=== PATIENT | male | born 1955 | race Caucasian/White ===

== ENCOUNTER 2020-01-05 11:49 | Emergency (ER) | payer BC ==
--- NOTE | 2020-01-05 12:27 | ER Document Report ---
ED Medical Screen (RME) - General Chief Complaint: Shortness Of Breath Stated Complaint: SHORT OF BREATH,BODY SWELLING Time Seen by Provider: 01/05/20 12:14 Primary Care Provider: URIHA JONES MD [Primary Care Provider] - Follow up as needed Mode of Arrival: Ambulatory Information source: Patient - HPI Notes: 01/05/20 12:22 64-year-old male with a history of stage IV 9 small cell carcinoma presents emergency room with shortness of breath and generalized weakness for the last 4 days. Patient states that he was on infusions for his cancer treatment but but then was placed on an oral pill called "Geotrack" for 58 days but was taken off 6 days ago because he was having diarrhea. Since that time has had progressive weakness, shortness of breath and swelling in his bilateral legs and knee. Reports that his oncologist in [place] advised him to double his Lasix on a schedule due to his swelling. Patient does have an oncologist locally, Dr. Graham. Dr. Graham, oncologist on-call called and requested that he get a CT abdomen pelvis with IV and oral for concerns of non-small cell carcinoma spreading. Patient denies any chest pain, fevers, chills, abdominal pain, nausea vomiting or diarrhea. Patient denies being around any covid with positive patients I have greeted and performed a rapid initial assessment of this patient. A comp rehensive ED assessment and evaluation of the patient, analysis of test results and completion of the medical decision making process will be conducted by additional ED providers. PHYSICAL EXAMINATION: GENERAL: Chronically ill, malnourished, and in no acute distress. NECK: Normal range of motion CV: s1, s2 regular LUNGS: No respiratory distress - Related Data Allergies/Adverse Reactions: No Known Allergies Allergy (Unverified 01/05/20 12:12) Physical Exam - Vital signs Vitals: Temp Pulse Resp BP Pulse Ox 97.6 F 80 18 98/79 L 95 01/05/20 11:57 01/05/20 11:57 01/05/20 11:57 01/05/20 11:57 01/05/20 11:57 Course - Vital Signs Vital signs: Temp Pulse Resp BP Pulse Ox 97.6 F 80 18 98/79 L 95 01/05/20 11:57 01/05/20 11:57 01/05/20 11:57 01/05/20 11:57 01/05/20 11:57 Doctor's Discharge - Discharge Referrals: URIAH JONES MD [Primary Care Provider] - Follow up as needed
[2020-01-05 13:08] VITALS: BP 129/72
[2020-01-05 13:25] LABS: APPEARANCE,URINE CLEAR; BILIRUBIN,URINE NEGATIVE (NEGATIVE); COLOR,URINE YELLOW; GLUCOSE, URINE NEGATIVE (NEGATIVE); KETONES,URINE NEGATIVE (NEGATIVE); LEUKOCYTE ESTERASE,URINE NEGATIVE (NEGATIVE); NITRITE,URINE NEGATIVE (NEGATIVE); PROTEIN,URINE NEGATIVE (NEGATIVE); URINE SPECIFIC GRAVITY 1.012
[2020-01-05 13:26] LABS: HEMATOCRIT 42.9 % (37.9-51.0); HEMOGLOBIN 13.7 g/dL (13.5-17.0); MEAN CORPUSCULAR HEMOGLOBIN 26.2 pg (27.0-33.4); MEAN CORPUSCULAR VOLUME 82 fl (80-97); PLATELET COUNT 361 10^3/uL (150-450); RED BLOOD COUNT 5.24 10^6/uL (4.35-5.55); RED CELL DISTRIBUTION WIDTH 15.8 % (11.5-14.0); WHITE BLOOD COUNT 13.3 10^3/uL (4.0-10.5)
--- NOTE | 2020-01-05 13:33 | ER Document Report ---
ED General - General Chief Complaint: Shortness Of Breath Stated Complaint: SHORT OF BREATH,BODY SWELLING Time Seen by Provider: 01/05/20 12:14 Primary Care Provider: URIAH JONES MD [Primary Care Provider] - Follow up as needed Mode of Arrival: Ambulatory Notes: Patient is a 64-year-old white male with a history of stage IV non-small cell lung carcinoma who presents to the emergency department with a chief complaint of generalized weakness and increased shortness of breath. Patient states that he frequents pleural effusions. He states he was recently on an oral therapeutic medication GL lock. He states he stopped the medication secondary to severe diarrhea as a side effect. He states that since that time he is felt generally weak, fatigued and had increased shortness of breath. Called and spoke with Dr. Cachorro graham who recommended patient have a CT scan of the chest abdomen and pelvis with oral and IV contrast. Patient states he has had issues like this before with his breathing, had to have pleural effusion drained in the past. States this is not as severe as it was previously. They deny any known sick contacts. reports he had a COVID-19 test done 2 days ago and it was negative. No fevers. - Related Data Allergies/Adverse Reactions: No Known Allergies Allergy (Unverified 01/05/20 12:12) Past Medical History - General Information source: Patient - Social History Smoking Status: Former Smoker Chew tobacco use (# tins/day): No Drug Abuse: None Family History: Reviewed & Not Pertinent Review of Systems - Review of Systems Constitutional: Weakness. denies: Fever EENT: denies: Throat pain Cardiovascular: denies: Chest pain Respiratory: Short of breath Gastrointestinal: denies: Abdominal pain Musculoskeletal: denies: Muscle pain Hematologic/Lymphatic: denies: Easy bleeding Neurological/Psychological: Weakness Physical Exam - Vital signs Vitals: Temp Pulse Resp BP Pulse Ox 97.6 F 80 18 98/79 L 95 01/05/20 11:57 01/05/20 11:57 01/05/20 11:57 01/05/20 11:57 01/05/20 11:57 - General General appearance: Appears well, Alert In distress: None - Respiratory Respiratory status: No respiratory distress Chest status: Nontender Breath sounds: Rales - Left base Chest palpation: Normal - Cardiovascular Rhythm: Regular Heart sounds: Normal auscultation - Extremities General lower extremity: Edema - 1+ pitting - Neurological Neuro grossly intact: Yes Cognition: Normal Orientation: AAOx4 - Psychological Associated symptoms: Normal affect, Normal mood - Skin Skin Temperature: Warm Skin Moisture: Dry Skin Color: Normal Course - Re-evaluation Re-evalutation: 01/05/20 13:49 EK. Sinus rhythm at 79 bpm. First-degree AV block with a prolonged ME. Low voltage throughout. No STEMI. Interpreted by ED attending. 01/05/20 13:50 No prior EKG for comparison. 01/05/20 16:23 I called and spoke with the patient's traffic signal repairer in [facility], Dr. Wellington Henry at [phone]. We discussed the patient's history and he is very well- informed regarding this patient. He recommended given the patient's presentation and incidental findings of pericardial effusion on CT scan with the low voltage EKG that an echo be done. He reports the patient's had to have a tap of the pericardial effusion and pleural effusions in the past. He states especially given those findings and the small amount of ascites that an echo would be of great assistance. We discussed the patient's imaging and laboratory findings. I ordered a stat echo on the patient and called and spoke with the player piano technician. They will perform the echo stat. I called and spoke with Dr. Perez, traffic signal repairer on-call who will read the echo for us stat. He is aware of the patient's condition and history. In the interim Dr. Henry did recommend IV Lasix. This was in conjunction with recommendations from Dr. Cachorro graham. Both agreed IV Lasix would be appropriate in this setting. His traffic signal repairer also recommended the patient be changed to long-acting diuretic from Lasix given his ongoing fluid overload. Dr. Sage recommended torsemide 40 mg p.o. daily and discontinue Lasix after today. Pending echo at this time. 01/05/20 18:[address] Perez showing relatively normal echo with some mild regurgitations, no wall motion abnormalities and a normal EF of 55 to 60%. No significant pericardial effusion for drainage or evidence of tamponade. Per recommendations from the patient's traffic signal repairer Dr. Carmona we will change his Lasix to torsemide 40 mg daily. He was loaded with Lasix IV here, 80 mg. He is stable and appropriate for discharge and outpatient follow-up. Dr. Henry advised he will call the patient later today or tomorrow to follow-up with him. The patient will also call Dr. Cachorro graham himself within the next couple of days for ev aluation. Cachorro graham and Dr. Henry are aware of the patient's visit here condition, status and studies/results. Patient states that he actually feels very well. He states that he is feeling hungry, reports he has not had anything to eat or have much of an appetite in 3 to 4 days and is pleasantly surprised by being hungry. We will give him food here. Plan is for discharge with outpatient follow-up. Advised they return here or any ER immediately with any new, persistent or worsening symptoms. They verbalized understood and agreed. - Vital Signs Vital signs: Temp Pulse Resp BP Pulse Ox 97.6 F 80 18 129/72 H 94 01/05/20 11:57 01/05/20 11:57 01/05/20 15:00 01/05/20 13:11 01/05/20 14:01 - Laboratory Result Diagrams: 01/05/20 13:00 01/05/20 13:00 Laboratory results interpreted by me: 01/05/20 01/05/20 01/05/20 13:00 13:00 13:00 WBC 13.3 H MCH 26.2 L RDW 15.8 H Seg Neuts % (Manual) 79 H Lymphocytes % (Manual) 10 L Metamyelocytes % 2 H Abs Neuts (Manual) 10.8 H Sodium 132.5 L Chloride 91 L Carbon Dioxide 33 H BUN 51 H Creatinine 1.34 H Est GFR (MDRD) Non-Af 54 L Total Bilirubin 1.8 H NT-Pro-B Natriuret Pep 1650 H Urine Urobilinogen Urine Ascorbic Acid 01/05/20 13:00 WBC MCH RDW Seg Neuts % (Manual) Lymphocytes % (Manual) Metamyelocytes % Abs Neuts (Manual) Sodium Chloride Carbon Dioxide BUN Creatinine Est GFR (MDRD) Non-Af Total Bilirubin NT-Pro-B Natriuret Pep Urine Urobilinogen 2.0 H Urine Ascorbic Acid 20 H Discharge - Discharge Clinical Impression: Pericardial effusion, Pleural effusion, Lower extremity edema Fluid overload Qualifiers: Hypervolemia type: unspecified Qualified Code(s): E87.70 - Fluid overload, unspecified Ascites Qualifiers: Ascites type: other type Qualified Code(s): R18.8 - Other ascites Condition: Stable Disposition: HOME, SELF-CARE Instructions: Pleural Effusion ([facility]) Additional Instructions: Please follow-up with Dr. Graham within the next few days. Patient Dr. Henry advised he will call you to check in with you. Please discontinue your Lasix. We will start you on torsemide 40 mg daily. Please return here or any ER immediately with any new, persistent or worsening symptoms. Prescriptions: Torsemide [Demadex 20 mg Tablet] 40 mg PO DAILY #60 tablet Referrals: URIAH JONES MD [Primary Care Provider] - Follow up as needed AUGUSTUS GRAHAM MD [ACTIVE STAFF] - Follow up as needed
[2020-01-05 13:39] LABS: ALBUMIN 3.8 g/dL (3.5-5.0); ALKALINE PHOSPHATASE 119 U/L (38-126); ANION GAP 9 (5-19); ASPARTATE AMINO TRANSFERASE 31 U/L (17-59); BILIRUBIN,DIRECT 0.2 mg/dL (0.0-0.4); BILIRUBIN,TOTAL 1.8 mg/dL (0.2-1.3); BLOOD UREA NITROGEN 51 mg/dL (7-20); CALCIUM 9.1 mg/dL (8.4-10.2); CARBON DIOXIDE 33 mmol/L (22-30); CHLORIDE 91 mmol/L (98-107); GLUCOSE 106 mg/dL (75-110); POTASSIUM 3.8 mmol/L (3.6-5.0); TOTAL PROTEIN 7.1 g/dL (6.3-8.2)
[2020-01-05 14:06] LABS: ABSOLUTE LYMPHOCYTES# (MANUAL) 1.5 10^3/uL (0.5-4.7); ABSOLUTE MONOCYTES # (MANUAL) 0.8 10^3/uL (0.1-1.4); BASOPHILS % (MANUAL) 1 % (0-2); EOSINOPHILS % (MANUAL) 1 % (0-6); LYMPHOCYTES % (MANUAL) 10 % (13-45); METAMYELOCYTES % (MANUAL) 2 % (0-1); MONOCYTES % (MANUAL) 6 % (3-13); SEGMENTED NEUTROPHILS % (MAN) 79 % (42-78); TOTAL CELLS COUNTED 100
[2020-01-05 14:07] LABS: PLATELET COMMENT ADEQUATE
[2020-01-05 14:11] LABS: ANISOCYTOSIS 1+; HYPOCHROMASIA SLIGHT; POIKILOCYTOSIS SLIGHT; POLYCHROMASIA SLIGHT
[2020-01-05 14:12] LABS: SCHISTOCYTES SLIGHT
--- NOTE | 2020-01-05 15:01 | EKG REPORT ---
SEVERITY:- ABNORMAL ECG - SINUS RHYTHM FIRST DEGREE AV BLOCK PROBABLE LEFT ATRIAL ABNORMALITY ANTERIOR INFARCT, AGE INDETERMINATE : Confirmed by: Doug Soriano MD 05-Jan-2020 15:01:01
--- NOTE | 2020-01-05 15:37 | RADIOLOGY REPORT (SQ) ---
EXAM DESCRIPTION: CT CHEST WITH IMAGES COMPLETED DATE/TIME: 01/05/2020 2:30 pm REASON FOR STUDY: weakness, hx of non small cell carcinoma COMPARISON: None. TECHNIQUE: CT scan of the chest performed using helical scanning technique with dynamic intravenous contrast injection. Images reviewed with lung, soft tissue and bone windows. Reconstructed coronal and sagittal MPR and MIP images reviewed. All images stored on PACS. All CT scanners at this facility use dose modulation, iterative reconstruction, and/or weight based d osing when appropriate to reduce radiation dose to as low as reasonably achievable (ALARA). [facility]: Dose Right [facility]: CareDose [facility]: Dose Right [facility]: Teradose 4D [facility]: Avvenu CONTRAST TYPE AND DOSE: contrast/concentration: Isovue 350.00 mmol/ml; Total Contrast Delivered: 86. 0 ml; Total Saline Delivered: 69.0 ml RENAL FUNCTION: BUN 51, creatinine 1.34 RADIATION DOSE: CT Rad equipment meets quality standard of care and radiation dose reduction techniq ues were employed. CTDIvol: 7.8 - 10.5 mGy. DLP: 1157 mGy-cm. . LIMITATIONS: None. FINDINGS: LUNGS AND PLEURA: There are bilateral pleural effusions some a which are loculated. There is bilateral centrilobular emphysematous change. Some prominence of interstitial markings but no fo ary consolidation. Probable basilar fibrosis. HILAR AND MEDIASTINAL STRUCTURES: Mediastinal and right hilar adenopathy suspicious for metastatic di sease. Single node best demonstrated on series 3 image 26 measures 3 cm in greatest diameter. HEART AND VASCULAR STRUCTURES: Small pericardial effusion. HARDWARE: None in the chest. UPPER ABDOMEN: There is ascites. Incidental note is made of a gallstone. THYROID AND OTHER SOFT TISSUES: No masses. No adenopathy. BONES: No significant finding. OTHER: Left-sided PICC line is in place. Catheter tip overlies the SVC right atrial junction. IMPRESSION: 1. Large bilateral pleural effusions most of which appears loculated. 2. Centrilobular emphysematous changes. 3. Soft tissue mass in the upper mediastinum with right hilar adenopathy as described suspicious for neoplasm. 4. Small pericardial effusion. TECHNICAL DOCUMENTATION: JOB ID: [id number] Quality ID # [id number]: Final reports with documentation of one or more dose reduction techniques (e.g., Au tomated exposure control, adjustment of the mA and/or kV according to patient size, use of iterative reconstruction technique) 2010 [employer]- All Rights Reserved Reading location - IP/workstation name: [email or web address]
--- NOTE | 2020-01-05 15:42 | RADIOLOGY REPORT (SQ) ---
EXAM DESCRIPTION: CT ABD/PELVIS WITH IV ORAL IMAGES COMPLETED DATE/TIME: 01/05/2020 2:30 pm REASON FOR STUDY: nausea and weakness. hx of Nonsmallcellcarcinoma COMPARISON: None. TECHNIQUE: CT scan of the abdomen and pelvis performed using helical scanning technique with dynamic intravenous contrast injection. No oral contrast. Images reviewed with lung, soft tissue, and bone windows. Reconstructed coronal and sagittal MPR images reviewed. Delayed images for evaluation of the urinary system also acquired. All images stored on PACS. All CT scanners at this facility use dose modulation, iterative reconstruction, and/or weight based d osing when appropriate to reduce radiation dose to as low as reasonably achievable (ALARA). [facility]: Dose Right [facility]: CareDose [facility]: Dose Right [facility]: Teradose 4D [facility]: Snapcious CONTRAST TYPE AND DOSE: 86 mL Omnipaque 350 RENAL FUNCTION: BUN 51, creatinine 1.34 RADIATION DOSE: . LIMITATIONS: None. FINDINGS: LOWER CHEST: Bilateral pleural effusions. Please refer to the chest CT for further discus audrey of lung findings. LIVER: Normal size. No masses. No dilated ducts. SPLEEN: Normal size. No focal lesions. PANCREAS: No masses. No significant calcifications. No adjacent inflammation or peripancreatic fluid collections. Pancreatic duct not dilated. GALLBLADDER: Single gallstone. ADRENAL GLANDS: No significant masses or asymmetry. RIGHT KIDNEY AND URETER: No solid masses. No significant calcifications. No hydronephrosis or hyd roureter. LEFT KIDNEY AND URETER: No solid masses. No significant calcifications. No hydronephrosis or hydr oureter. AORTA AND VESSELS: No aneurysm. No dissection. Renal arteries, SMA, celiac without stenosis. RETROPERITONEUM: No retroperitoneal adenopathy, hemorrhage or masses. BOWEL AND PERITONEAL CAVITY: No obstruction. Small volume ascites. APPENDIX: Normal. PELVIS: Small amount of free fluid the pelvis. ABDOMINAL WALL: Subcutaneous edema. BONES: No significant or acute findings. OTHER: No other significant finding. IMPRESSION: Small to moderate volume ascites. No evidence of metastatic disease in the abdomen or p nikki. Gallstone. TECHNICAL DOCUMENTATION: JOB ID: [id number] Quality ID # [id number]: Final reports with documentation of one or more dose reduction techniques (e.g., Au tomated exposure control, adjustment of the mA and/or kV according to patient size, use of iterative reconstruction technique) 2010 [employer]- All Rights Reserved Reading location - IP/workstation name: [email or web address]
[2020-01-05] MEDS ORDERED: FUROSEMIDE INJ/PF 40 MG/4 ML SDV IV ONE (16:03)
--- NOTE | 2020-01-05 17:52 | XCELERA REPORT ---
[address] [address] Transthoracic Echocardiogram Report Name: PIETER MAYO Age: 64 yrs Gender: Male : 1955 Patient Status: Emergency Patient Location: ER Study Date: 01/05/2020 04:44 PM Height: 73 in Weight: 166 lb BSA: 2.0 m2 Procedure: A two-dimensional transthoracic echocardiogram with color flow and Doppler was performed. Study Quality: Poor. Reason For Study: pericardial effusion History: pericardial effusion. Ordering Physician: GAGE KIDD Performed By: Nadine Renee Interpretation Summary The left ventricle is normal in size. There is normal left ventricular wall thickness. Left ventricular systolic function is normal. LV EF is 55% to 60% LV diastolic function not assessed. The left ventricular wall motion is normal. There is no thrombus. probably no ASD,VSD,or PFO seen. The right atrium is normal. The left atrial size is normal. There is no evidence of mitral valve prolapse. There is no vegetation seen on the mitral valve. There is no mitral valve stenosis. There is a mild amount of mitral regurgitation There is no aortic valvular vegetation. There is no aortic valve stenosis There is aortic sclerosis without aortic stenosis. There is no LVOT obstruction. There is a trace amount of aortic regurgitation There is no tricuspid stenosis. There is a mild amount of tricuspid regurgitation There is mild pulmonary hypertension by echo RVSP is 39 to 44 mm of Hg, with RA mean of 15 to 20. There is no pulmonic valvular stenosis. There is no pulmonic valvular regurgitation. The aortic root is not well visualized but is probably normal size. The inferior vena cava appeared dilated and decreased < 50% with respiration (RAP 15-20 mmHg) Small pericardial effusion. There are no echocardiographic or Doppler indications for cardiac tamponade MMode/2D Measurements & Calculations RVDd: 3.2 cm LVIDd: 3.1 cm FS: 32.4 % Ao root diam: 2.8 cm IVSd: 1.0 cm LVIDs: 2.1 cm EDV(Teich): 39.2 ml Ao root area: 6.3 cm2 LVPWd: 1.0 cm ESV(Teich): 14.9 ml LA dimension: 3.2 cm EF(Teich): 62.1 % Doppler Measurements & Calculations MV E max benitez: MV P1/2t max benitez: Ao V2 max: LV V1 max P.8 cm/sec 98.3 cm/sec 87.6 cm/sec 1.6 mmHg MV P1/2t: 41.1 msec Ao max P.1 mmHg LV V1 max: MVA(P1/2t): 5.4 cm2 64.0 cm/sec MV dec slope: 700.9 cm/sec2 MV dec time: 0.15 sec PA V2 max: TR max benitez: MV P1/2t-pr_phl: 56.3 cm/sec 247.0 cm/sec 41.1 msec PA max P.3 mmHgTR max P.4 mmHg Left Ventricle The left ventricle is normal in size. There is normal left ventricular wall thickness. Left ventricular systolic function is normal. LV EF is 55% to 60%. LV diastolic function not assessed. The left ventricular wall motion is normal. There is no thrombus. probably no ASD,VSD,or PFO seen. Right Ventricle The right ventricle is not well visualized secondary to technical limitations. Atria The right atrium is normal. The left atrial size is normal. Mitral Valve There is no evidence of mitral valve prolapse. There is no vegetation seen on the mitral valve. There is no mitral valve stenosis. There is a mild amount of mitral regurgitation. Aortic Valve There is no aortic valvular vegetation. There is no aortic valve stenosis. There is aortic sclerosis without aortic stenosis. There is no LVOT obstruction. There is a trace amount of aortic regurgitation. Tricuspid Valve There is no tricuspid stenosis. There is a mild amount of tricuspid regurgitation. There is mild pulmonary hypertension by echo. RVSP is 39 to 44 mm of Hg, with RA mean of 15 to 20. Pulmonic Valve There is no pulmonic valvular stenosis. There is no pulmonic valvular regurgitation. Great Vessels The aortic root is not well visualized but is probably normal size. The inferior vena cava appeared dilated and decreased < 50% with respiration (RAP 15-20 mmHg). Effusions Small pericardial effusion. There are no echocardiographic or Doppler indications for cardiac tamponade. : GAGE KIDD, Claudette
== END 2020-01-05 18:46 | disposition home or self-care (01) ==
LOC: ER 11:49
DX: I31.3 Pericardial effusion (noninflammatory) (principal); E87.70 Fluid overload, unspecified; J90 Pleural effusion, not elsewhere classified; R18.8 Other ascites; I44.0 Atrioventricular block, first degree; R53.1 Weakness; R06.02 Shortness of breath; R53.83 Other fatigue; Z87.891 Personal history of nicotine dependence
CPT/HCPCS: 93005; 36591; 99285; 96374; 36415; 83735; 85025; 80053; 81001; 83880; 93306; 71260; 74177; 93010; J1940

== ENCOUNTER 2020-01-08 16:32 | Inpatient (IN) | payer BC ==
--- NOTE | 2020-01-08 17:50 | ER Document Report ---
ED Medical Screen (RME) - General Chief Complaint: Chest Pain Stated Complaint: CHEST PAIN Time Seen by Provider: 01/08/20 17:45 Primary Care Provider: URIAH JONES MD [Primary Care Provider] - Follow up as needed Mode of Arrival: Wheelchair Information source: Patient Notes: 64-year-old male presented to ED for chest pain shortness of breath. He is stage IV non-small cell lung CA. His last chemo was 40 days ago. He has an arterial vascular bypass in the right leg he has had ventral hernias x2 he has had melanomas and basal cells removed and has had gamma knife surgery x2. He does not smoke drink or drugs. He did smoke in the past. He does live with his family. He is alert oriented respirations regular nonlabored. He was seen recently for pleural effusion was given Lasix but his pain is worse today. I have greeted and performed a rapid initial assessment of this patient. A comprehensive ED assessment and evaluation of the patient, analysis of test results and completion of medical decision making process will be conducted by an additional ED providers. - Related Data Allergies/Adverse Reactions: No Known Allergies Allergy (Unverified 01/05/20 12:12) Physical Exam - Vital signs Vitals: Temp Pulse Resp BP Pulse Ox 98.4 F 83 19 104/72 92 01/08/20 16:48 01/08/20 16:48 01/08/20 16:48 01/08/20 16:48 01/08/20 16:48 Course - Vital Signs Vital signs: Temp Pulse Resp BP Pulse Ox 98.4 F 83 19 104/72 92 01/08/20 16:48 01/08/20 16:48 01/08/20 16:48 01/08/20 16:48 01/08/20 16:48 Doctor's Discharge - Discharge Referrals: URIAH JONES MD [Primary Care Provider] - Follow up as needed
[2020-01-08 18:26] LABS: HEMATOCRIT 47.3 % (37.9-51.0); HEMOGLOBIN 15.3 g/dL (13.5-17.0); MEAN CORPUSCULAR HEMOGLOBIN 26.6 pg (27.0-33.4); MEAN CORPUSCULAR HGB CONC 32.4 g/dL (32.0-36.0); MEAN CORPUSCULAR VOLUME 82 fl (80-97); PLATELET COUNT 425 10^3/uL (150-450); RED BLOOD COUNT 5.76 10^6/uL (4.35-5.55); RED CELL DISTRIBUTION WIDTH 16.1 % (11.5-14.0); WHITE BLOOD COUNT 14.4 10^3/uL (4.0-10.5)
[2020-01-08 18:29] LABS: INTERNATIONAL RATION (INR) 3.32; PARTIAL THROMBOPLASTIN TIME 47.3 SEC (23.5-35.8); PROTHROMBIN TIME 33.5 SEC (11.4-15.4)
[2020-01-08 18:46] LABS: ALBUMIN 4.1 g/dL (3.5-5.0); ALKALINE PHOSPHATASE 186 U/L (38-126); ANION GAP 9 (5-19); ASPARTATE AMINO TRANSFERASE 87 U/L (17-59); BILIRUBIN,DIRECT 0.7 mg/dL (0.0-0.4); BILIRUBIN,TOTAL 2.2 mg/dL (0.2-1.3); BLOOD UREA NITROGEN 85 mg/dL (7-20); CALCIUM 9.7 mg/dL (8.4-10.2); CARBON DIOXIDE 33 mmol/L (22-30); CHLORIDE 89 mmol/L (98-107); CREATINE KINASE 41 U/L (55-170); GLUCOSE 113 mg/dL (75-110); POTASSIUM 5.7 mmol/L (3.6-5.0); TOTAL PROTEIN 7.4 g/dL (6.3-8.2)
[2020-01-08 19:01] LABS: ABSOLUTE LYMPHOCYTES# (MANUAL) 0.6 10^3/uL (0.5-4.7); ABSOLUTE MONOCYTES # (MANUAL) 0.6 10^3/uL (0.1-1.4); BASOPHILS % (MANUAL) 1 % (0-2); EOSINOPHILS % (MANUAL) 1 % (0-6); LYMPHOCYTES % (MANUAL) 4 % (13-45); MONOCYTES % (MANUAL) 4 % (3-13); SEGMENTED NEUTROPHILS % (MAN) 90 % (42-78); TOTAL CELLS COUNTED 100
[2020-01-08 19:02] LABS: ANISOCYTOSIS 1+; PLATELET COMMENT ADEQUATE
[2020-01-08 19:03] LABS: POLYCHROMASIA SLIGHT
[2020-01-08 19:04] LABS: BURR CELLS SLIGHT
[2020-01-08 19:05] LABS: OVALOCYTES 1+; POIKILOCYTOSIS 1+
--- NOTE | 2020-01-08 19:13 | RADIOLOGY REPORT (SQ) ---
EXAM DESCRIPTION: CHEST 2 VIEWS IMAGES COMPLETED DATE/TIME: 01/08/2020 6:10 pm REASON FOR STUDY: Chest pain shortness of breath history lung CA and COMPARISON: 01/03/2020. EXAM PARAMETERS: NUMBER OF VIEWS: two views TECHNIQUE: Digital Frontal and Lateral radiographic views of the chest acquired. RADIATION DOSE: NA LIMITATIONS: none FINDINGS: LUNGS AND PLEURA: Diffuse interstitial prominence. Moderate bilateral pleural effusions. MEDIASTINUM AND HILAR STRUCTURES: No masses or contour abnormalities. HEART AND VASCULAR STRUCTURES: Cardiac enlargement. Vascular congestion. BONES: No acute findings. Degenerative changes in the spine. HARDWARE: None in the chest. OTHER: No other significant finding. IMPRESSION: CARDIOMEGALY WITH VASCULAR CONGESTION AND BILATERAL PLEURAL EFFUSIONS. NO SIGNIFICANT I NTERVAL CHANGE. TECHNICAL DOCUMENTATION: JOB ID: [id number] 2010 [employer]- All Rights Reserved Reading location - IP/workstation name: [email or web address]
[2020-01-08] MEDS ORDERED: DEXTROSE 50%-WATER 25 GM/50 ML DISP.SYRIN IV ONE (23:06)
[2020-01-08] MEDS ORDERED: INSULIN REG, HUMAN 100 UNIT/ML 3 ML VIAL (PYX) IV ONE (23:06)
[2020-01-08] MEDS ORDERED: CEFEPIME 2 GM/D5W RTU 2 GM/50 ML RTUPB IV ONE (23:28)
[2020-01-08] MEDS ORDERED: VANCOMYCIN HCL INJ 1000 MG VIAL IV ONE (23:28)
--- NOTE | 2020-01-08 23:34 | ER Document Report ---
ED General - General Chief Complaint: Chest Pain Stated Complaint: CHEST PAIN Time Seen by Provider: 01/08/20 17:45 Primary Care Provider: URIAH JONES MD [Primary Care Provider] - Follow up as needed Mode of Arrival: Wheelchair - HPI Notes: Patient is a 64-year-old male with a history of stage IV non-small cell lung carcinoma, who presents to the emergency department for evaluation of shortness of breath. He was seen here on Wednesday. He was told he had "fluid around his lungs" and contacted his service delivery analyst in [facility]. He was changed from Lasix to torsemide. He states that despite taking these medications he continues to be short of breath. Patient's notes that she thought he may have been febrile earlier. He was extremely chilled, then became sweaty. He has had a new cough over the last several days as well. Has intermittently been productive of phlegm. He has been dizzy and weak, really not taking in much in the way of food, patient's is concerned about his nutrition. He states he has pain "in his lungs" when he short of breath. He is waking up suddenly short of breath in the middle of the night. Otherwise, he has been taking his me dications as prescribed. - Related Data Allergies/Adverse Reactions: No Known Allergies Allergy (Unverified 01/05/20 12:12) Home Medications: Torsemide 40 mg daily, Eliquis 5 mg twice daily, amiodarone 200 mg daily, metoprolol 50 mg daily, zolpidem 6.25 mg at bedtime as needed Past Medical History - General Information source: Patient - Social History Smoking Status: Former Smoker Family History: Reviewed & Not Pertinent - Past Medical History Cardiac Medical History: Reports: Hx Atrial Fibrillation, Hx Congestive Heart Failure Malignancy Medical History: Reports Hx Lung Cancer - Stage IV non-small cell carcinoma, Reports Hx Skin Cancer - Basal cell, Reports Other - Melanoma Past Surgical History: Reports: Hx Herniorrhaphy, Hx Orthopedic Surgery, Other - Gamma knife, excision of melanoma Review of Systems - Review of Systems Constitutional: See HPI Cardiovascular: See HPI Respiratory: See HPI -: Yes All other systems reviewed and negative Physical Exam - Vital signs Vitals: Temp Pulse Resp BP Pulse Ox 98.4 F 83 19 104/72 92 01/08/20 16:48 01/08/20 16:48 01/08/20 16:48 01/08/20 16:48 01/08/20 16:48 - Notes Notes: This is a frail-appearing 64-year-old male, who appears her stated age, no acute distress. Vital signs reviewed, please refer to chart. Head is normocephalic, atraumatic. Pupils equal round, reactive to light. Neck is supple without meningismus. Heart is regular rate and rhythm. Lungs revealed diminished breath sounds throughout, particularly in the bases. Abdomen is scaphoid, nontender, normoactive bowel sounds throughout. Extremities without cyanosis, clubbing. Posterior calves are nontender. Peripheral pulses are equal. Skin is warm and dry. Patient is awake, alert, neurological exam is nonfocal. Course - Re-evaluation Re-evalutation: 01/08/20 23:45 Patient presents to the emergency department for evaluation. He is here for shortness of breath. He is tachycardic on arrival, his oxygenation is borderline. Patient had laboratory investigations as ordered through triage. Patient has new abnormal renal function and hyperkalemia. He is given IV fluids, insulin, dextrose. The patient is tachycardic with subjective fever, and has pleural effusions noted bilaterally. I reviewed his recent CT, which showed these to be loculated. He has had subjective chills as well as worsening shortness of breath and cough. I am concerned this patient has a pneumonia. He is treated with cefepime and vancomycin, as the patient has had IV chemotherapy and been in an inpatient setting multiple times over the last 3 months. 01/09/20 01:29 Patient's blood pressures have been borderline, but his maps have been stable. He is given IV fluids as per sepsis protocol. I spoke with Dr. Wong, he will admit the patient for further care. - Vital Signs Vital signs: Temp Pulse Resp BP Pulse Ox 98.4 F 83 17 92/65 L 98 01/08/20 16:48 01/08/20 16:48 01/08/20 23:42 01/08/20 23:42 01/08/20 23:42 - Laboratory Result Diagrams: 01/08/20 18:04 01/08/20 18:04 Laboratory results interpreted by me: 01/08/20 01/08/20 01/08/20 18:04 18:04 18:04 WBC 14.4 H RBC 5.76 H MCH 26.6 L RDW 16.1 H Seg Neuts % (Manual) 90 H Lymphocytes % (Manual) 4 L Abs Neuts (Manual) 13.0 H PT 33.5 H APTT 47.3 H Sodium 131.3 L Potassium 5.7 H Chloride 89 L Carbon Dioxide 33 H BUN 85 H Creatinine 2.59 H Est GFR ( Amer) 30 L Est GFR (MDRD) Non-Af 25 L Glucose 113 H Total Bilirubin 2.2 H Direct Bilirubin 0.7 H AST 87 H ALT 83 H Alkaline Phosphatase 186 H Creatine Kinase 41 L - Diagnostic Test Radiology reviewed: Reports reviewed Radiology results interpreted by me: 01/08/20 23:43 Chest X-Ray 01/08/20 17:51 IMPRESSION: CARDIOMEGALY WITH VASCULAR CONGESTION AND BILATERAL PLEURAL EFFUSIONS. NO SIGNIFICANT INTERVAL CHANGE. - EKG Interpretation by Me Additional EKG results interpreted by me: 01/08/20 23:43 Sinus mechanism with a rate of 83 bpm. First-degree AV block. Normal axis. Nonspecific T wave changes, but no acute ST elevation concerning for infarction. No peak T waves secondary to hyperkalemia. Discharge - Discharge Clinical Impression: Pleural effusion, Hyperkalemia Sepsis Qualifiers: Sepsis acute organ dysfunction status: unspecified Acute kidney failure Qualifiers: Acute renal failure type: unspecified Qualified Code(s): N17.9 - Acute kidney failure, unspecified Condition: Stable Disposition: ADMITTED INPATIENT Admitting Provider: Judith (Hospitalist) Unit Admitted: Telemetry Referrals: URIAH JONES MD [Primary Care Provider] - Follow up as needed
[2020-01-08] MEDS ORDERED: IPRATROPIUM/ALBUTEROL 0.5-2.5 MG/3 ML AMPUL NEB ONE (23:38)
[2020-01-09] MEDS: NORMAL SALINE 1000 ML 1,000 ML IV PRN ×3 (00:46→13:19)
[2020-01-09] MEDS ORDERED: NORMAL SALINE 1000 ML 1,000 ML IV ONE ×3 (01:30→21:00)
[2020-01-09] MEDS ORDERED: DEXTROSE 5%-NORMAL SALINE 1,000 ML IV PRN (03:14)
[2020-01-09] MEDS ORDERED: MAGNESIUM HYDROXIDE SUSP 30 ML UDCUP PO PRN (03:14)
[2020-01-09] MEDS ORDERED: MAG HYDROX/AL HYDROX/SIMETH SUSP 30 ML UDCUP PO PRN (03:14)
[2020-01-09] MEDS ORDERED: GUAIFENESIN SYRP 200 MG/10 ML UDC PO PRN (03:16)
[2020-01-09] MEDS ORDERED: MELATONIN 5 MG TABLET PO PRN (03:16)
[2020-01-09] MEDS ORDERED: LORAZEPAM INJ 2 MG/1 ML VIAL IV PRN (03:16)
[2020-01-09] MEDS ORDERED: MORPHINE SULFATE 10 MG/ML INJ IV PRN (03:16)
[2020-01-09] MEDS ORDERED: ACETAMINOPHEN 325 MG TABLET PO PRN (03:16)
[2020-01-09] MEDS ORDERED: LINEZOLID 600 MG/300 ML RTUPB IV ONE (03:48)
[2020-01-09] MEDS ORDERED: LINEZOLID 600 MG/300 ML RTUPB IV SCH (04:00)
[2020-01-09] MEDS ORDERED: HEPARIN SOD (PORCINE) 5,000 UNIT/ML 1 ML VIAL SUBCUT SCH (06:00)
[2020-01-09] MEDS: PANTOPRAZOLE SODIUM 40 MG TABLET.DR PO SCH (06:12)
--- NOTE | 2020-01-09 06:35 | PDOC H&P ---
History of Present Illness Admission Date/PCP: 01/09/20 02:05 URIAH JONES MD Patient complains of: Dyspnea History of Present Illness: PIETER MAYO is a 64 year old male presented emergency room with a 10-day history of dyspnea. He admits the gradual development and progressive worsening of dyspnea over the course of the last 10 days, becoming severe over the last 2 days. His dyspnea is worsened with any exertion and has been accompanied by orthopnea, a productive cough (clear phlegm), episodes of subjective fever and chills with diaphoresis and vague intermittent sharp pains throughout his lungs. His dyspnea has been associated with generalized weakness, dizziness and an orexia. He denies other associated or accompanying signs and symptoms. He admits prior somewhat similar episodes with heart failure. He admits stage IV non-small cell lung cancer for which he is just begun seeing Dr. Hamilton. He also admits calling his previous physician and [facility] and describing his symptoms, thus obtaining a prescription for Demadex which did not improve his symptoms. He denies identification of any additional aggravating or ameliorating factors for his dyspnea. In the emergency room he was found to have bilateral loculated pleural effusions, a white blood count of 14,400, a potassium of 5.7 and a creatinine of 3.6. He appeared acutely ill and cachectic. He was subsequently admitted to the hospital for further evaluation treatment. 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 Denies: Cataracts, Ears - Hearing aids Neurological Medical History: Denies: Hemorrhagic CVA, Ischemic CVA, Seizures Endocrine Medical History: Denies: Diabetes Mellitus Type 1, Diabetes Mellitus Type 2, Hyperthyroidism, Hypothyroidism Renal/ Medical History: Denies: Chronic Kidney Disease, Nephrolithiasis Malignancy Medical History: Reports: Lung Cancer - Stage IV non-small cell carcinoma, Skin Cancer - Basal cell, Other - Malignant melanoma GI Medical History: Denies: Cirrhosis, Hepatitis Musculoskeltal Medical History: Denies: Arthritis, Fibromyalgia Skin Medical History: Denies: Eczema, Psoriasis Psychiatric Medical History: Denies: Alcohol Dependency, Substance Abuse, Tobacco Dependency Traumatic Medical History: Reports: None Hematology: Denies: Anemia, Bleeding Tendencies Infectious Medical History: Reports: None Past Surgical History Past Surgical History: Reports: Herniorrhaphy, Orthopedic Surgery, Vascular Surgery - Proximal right lower extremity, Other - Gamma knife, excision of melanoma, mediastinoscopy with biopsy Social History Information Source: Patient Lives with: Spouse/Significant other Smoking Status: Former Smoker Electronic Cigarette use?: No Frequency of Alcohol Use: None Hx Recreational Drug Use: No Drugs: None Hx Prescription Drug Abuse: No - Advance Directive Resuscitation Status: Full Code Surrogate healthcare decision maker:: Michaela Russell Family History Family History: denies: CAD, DM, Hypertension, Malignancy Parental Family History Reviewed: Yes Children Family History Reviewed: No Sibling(s) Family History Reviewed.: Yes Medication/Allergy Home Medications: Torsemide [Demadex 20 mg Tablet] 40 mg PO DAILY #60 tablet 01/05/20 Allergies/Adverse Reactions: No Known Allergies Allergy (Unverified 01/05/20 12:12) Review of Systems Constitutional: PRESENT: as per HPI, anorexia, chills, fever(s) Eyes: ABSENT: visual disturbances, other - Eye pain Ears: ABSENT: hearing changes, other - Ear pain Nose, Mouth, and Throat: ABSENT: headache(s), sore throat Cardiovascular: PRESENT: as per HPI, chest pain, dyspnea on exertion, orthropnea Respiratory: PRESENT: as per HPI, cough, dyspnea, sputum - Clear phlegm. ABSENT: hemoptysis Gastrointestinal: ABSENT: abdominal pain, constipation, diarrhea, nausea, vomiting Genitourinary: ABSENT: dysuria, hematuria Musculoskeletal: ABSENT: joint swelling, muscle weakness Integumentary: PRESENT: as per HPI, diaphoresis. ABSENT: pruritus, rash Neurological: ABSENT: confusion, convulsions, focal weakness, memory loss, syncope Psychiatric: ABSENT: anxiety, depression Endocrine: ABSENT: cold intolerance, heat intolerance Hematologic/Lymphatic: ABSENT: easy bleeding, easy bruising Allergic/Immunologic: ABSENT: seasonal rhinorrhea Physical Exam Vital Signs: Temp Pulse Resp BP Pulse Ox 98.4 F 83 17 92/65 L 98 01/08/20 16:48 01/08/20 16:48 01/08/20 23:42 01/08/20 23:42 01/08/20 23:42 Intake & Output 01/07/20 01/08/20 01/09/20 23:59 23:59 23:59 Intake Total 50 Balance 50 Weight 75.296 kg General appearance: PRESENT: mild distress - Secondary to dyspnea, thin Head exam: PRESENT: atraumatic, normocephalic Eye exam: PRESENT: conjunctiva pink. ABSENT: conjunctival injection, scleral icterus Ear exam: PRESENT: normal external ear exam. ABSENT: bleeding, drainage Mouth exam: PRESENT: dry mucosa, neck supple Neck exam: ABSENT: JVD, thyromegaly, tracheal deviation Respiratory exam: PRESENT: rhonchi - Scattered throughout all lung mccall, symmetrical Cardiovascular exam: PRESENT: RRR. ABSENT: clicks, gallop, rubs Pulses: PRESENT: normal radial pulses, normal dorsalis pedis pul Vascular exam: PRESENT: normal capillary refill. ABSENT: pallor GI/Abdominal exam: PRESENT: normal bowel sounds, soft. ABSENT: tenderness Rectal exam: PRESENT: deferred Extremities exam: ABSENT: joint swelling, pedal edema Musculoskeletal exam: ABSENT: deformity, dislocation Neurological exam: PRESENT: alert, oriented to person, oriented to place, oriented to time, oriented to situation, CN II-XII grossly intact. ABSENT: motor sensory deficit Psychiatric exam: PRESENT: appropriate affect, normal mood Skin exam: PRESENT: dry, intact, warm. ABSENT: jaundice, rash, urticaria Results Laboratory Results: 01/08/20 18:04 01/08/20 18:04 01/08/20 01/08/20 01/09/20 18:04 18:04 00:41 WBC 14.4 H RBC 5.76 H Hgb 15.3 Hct 47.3 MCV 82 MCH 26.6 L MCHC 32.4 RDW 16.1 H Plt Count 425 Seg Neutrophils % Not Reportable Sodium 131.3 L Potassium 5.7 H Chloride 89 L Carbon Dioxide 33 H Anion Gap 9 BUN 85 H Creatinine 2.59 H Est GFR ( Amer) 30 L Glucose 113 H Lactic Acid 1.8 Calcium 9.7 Total Bilirubin 2.2 H AST 87 H Alkaline Phosphatase 186 H Total Protein 7.4 Albumin 4.1 01/08/20 18:04 Creatine Kinase 41 L Impressions: Chest X-Ray 01/08/20 17:51 IMPRESSION: CARDIOMEGALY WITH VASCULAR CONGESTION AND BILATERAL PLEURAL EFFUSI ONS. NO SIGNIFICANT INTERVAL CHANGE. Assessment and Plan - Diagnosis (1) Acute kidney failure Qualifiers: Acute renal failure type: unspecified Qualified Code(s): N17.9 - Acute kidney failure, unspecified Is this a current diagnosis for this admission?: Yes (2) SIRS (systemic inflammatory response syndrome) Is this a current diagnosis for this admission?: Yes (3) Loculated pleural effusion Is this a current diagnosis for this admission?: Yes (4) Dyspnea Qualifiers: Dyspnea type: unspecified Qualified Code(s): R06.00 - Dyspnea, unspecified Is this a current diagnosis for this admission?: Yes (5) Hyperkalemia Is this a current diagnosis for this admission?: Yes (6) Leukocytosis Qualifiers: Leukocytosis type: unspecified Qualified Code(s): D72.829 - Elevated white blood cell count, unspecified Is this a current diagnosis for this admission?: Yes (7) Paroxysmal atrial fibrillation Is this a current diagnosis for this admission?: Yes (8) Chronic anticoagulation Is this a current diagnosis for this admission?: Yes - Plan Summary Summary: Patient will be admitted to the medical floor in a telemetry bed where he will receive routine supportive and symptomatic cares. He will receive cefepime 2 g IV every 12 hours and Zyvox 600 mg IV every 12 hours. He will receive supplemental oxygen as required to maintain adequate oxygenation status as determined by his oxygen saturation monitor. Interventional radiology may be consulted after discussion with them during the daytime hours about aspiration and drainage of his loculated pleural effusions. He will receive IV fluids utilizing D5 NS at 167 mL an hour initially. He will receive morphine sulfate 2 to 4 mg IV every 2 hours as needed for pain. He will receive Ativan 1 mg IV every 4 hours as needed for anxiety or restlessness. Consultation with Dr. Hamilton will be obtained. The patient will be on a prerenal cardiac diet as tolerated. - Time Time Spent with patient: 15-24 minutes Medications reviewed and adjusted accordingly: Yes Anticipated Discharge Disposition: Home with Home Health Anticipated Discharge Timeframe: Undetermined - Inpatient Certification Based on my medical assessment, after consideration of the patient's comorbidities, presenting symptoms, or acuity I expect that the services needed warrant INPATIENT care.: Yes I certify that my determination is in accordance with my understanding of Medicare's requirements for reasonable and necessary INPATIENT services [42 CFR 412.3e].: Yes Medical Necessity: Failure to Improve With Outpatient Therapy, Need Close Monitoring Due to Risk of Patient Decompensation, Need For IV Fluids, Need for IV Antibiotics, Risk of Complication if Not Cared For in Hospital
[2020-01-09] MEDS: ONDANSETRON HCL INJ/PF 4 MG/2 ML SDV IV PRN ×2 (07:45→12:18)
--- NOTE | 2020-01-09 09:06 | PDOC CONSULTATION ---
Consultation Consult Date: 01/09/20 Provider Consulted: URIAH JONES Consult reason:: Hematology/Oncology consultation was requested for patient on active treamtent for lung cancer admitted with worsening dyspnea. History of Present Illness Admission Date/PCP: 01/09/20 02:05 URIAH JONES MD History of Present Illness: PIETER MAYO is a 64 year old male who recently moved here from [facility]. He was diagnosed with lung cancer with mets to the brain in 2017. He has been undergoing a multitude of treatments, most recently afatinib. However, he has been off all treatment for the past 2 weeks. We have been awaiting his comparison CT scans from [place] to make further recommendations as to cause of his worsening dyspnea. I spoke with Freddie this morning in radiology and these are now available. Patient has had worsening dyspnea over the past [address] show moderate pleural effusions bilaterally. Today, he just states that he wants to feel better. He has been having nausea and constipation as well. He was recently started on a new diuretic to see if this helped the pleural effusions, but today appears a bit dehydrated. His potassium yesterday was 5.7 and INR 3.32. He has been on Eliquis. 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 Denies: Cataracts, Ears - Hearing aids Neurological Medical History: Denies: Hemorrhagic CVA, Ischemic CVA, Seizures Endocrine Medical History: Denies: Diabetes Mellitus Type 1, Diabetes Mellitus Type 2, Hyperthyroidism, Hypothyroidism Renal/ Medical History: Denies: Chronic Kidney Disease, Nephrolithiasis Malignancy Medical History: Reports: Lung Cancer - Stage IV non-small cell carcinoma, Skin Cancer - Basal cell, Other - Malignant melanoma GI Medical History: Denies: Cirrhosis, Hepatitis Musculoskeltal Medical History: Denies: Arthritis, Fibromyalgia Skin Medical History: Denies: Eczema, Psoriasis Psychiatric Medical History: Denies: Alcohol Dependency, Depression, Substance Abuse, Tobacco Dependency Traumatic Medical History: Reports: None Hematology: Reports: Other - DVT/PE in 2017 Denies: Anemia, Bleeding Tendencies Infectious Medical History: Reports: None Past Surgical History Past Surgical History: Reports: Herniorrhaphy, Orthopedic Surgery, Vascular Surgery - Proximal right lower extremity, Other - Gamma knife, excision of melanoma, mediastinoscopy with biopsy Social History Information Source: Patient Occupation: Nightingale designer Lives with: Spouse/Significant other Smoking Status: Former Smoker Cigarettes Packs Per Day: 2 Electronic Cigarette use?: No Number of Years Smokin Last Time Smoked: 1999 Frequency of Alcohol Use: None Hx Recreational Drug Use: No Drugs: None Hx Prescription Drug Abuse: No Past Social History Note: 1 child. - Advance Directive Resuscitation Status: Full Code Family History Family History: denies: CAD, DM, Hypertension, Malignancy Parental Family History Reviewed: Yes - Father bone cancer Children Family History Reviewed: No Sibling(s) Family History Reviewed.: Yes - Brother CVA Medication/Allergy Home Medications: Torsemide [Demadex 20 mg Tablet] 40 mg PO DAILY #60 tablet 01/05/20 Allergies/Adverse Reactions: No Known Allergies Allergy (Unverified 01/05/20 12:12) Review of Systems Constitutional: ABSENT: fever(s), headache(s) Eyes: ABSENT: visual disturbances Ears: ABSENT: hearing changes Nose, Mouth, and Throat: ABSENT: headache(s) Cardiovascular: ABSENT: chest pain Respiratory: PRESENT: dyspnea Gastrointestinal: PRESENT: constipation, nausea Genitourinary: ABSENT: dysuria Integumentary: ABSENT: rash Neurological: PRESENT: weakness Hematologic/Lymphatic: ABSENT: easy bleeding Physical Exam Vital Signs: Temp Pulse Resp BP Pulse Ox 97.3 F 44 L 18 100/64 92 01/09/20 07:48 01/09/20 07:48 01/09/20 07:48 01/09/20 07:48 01/09/20 07:48 Intake & Output 01/08/20 01/09/20 01/10/20 06:59 06:59 06:59 Intake Total 1050 1000 Balance 1050 1000 Weight 75.2 kg General appearance: PRESENT: mild distress, thin Head exam: PRESENT: normocephalic Eye exam: PRESENT: EOMI Mouth exam: PRESENT: dry mucosa Neck exam: ABSENT: lymphadenopathy, tenderness Respiratory exam: PRESENT: decreased breath sounds, wheezes Cardiovascular exam: PRESENT: other - Obscured by breath sounds. GI/Abdominal exam: PRESENT: soft. ABSENT: tenderness Extremities exam: ABSENT: pedal edema Musculoskeletal exam: PRESENT: other - Able to stand without assistance. Neurological exam: PRESENT: alert, awake Psychiatric exam: PRESENT: appropriate affect Skin exam: PRESENT: other - chronic skin changes from chemo. Results Laboratory Results: 01/08/20 18:04 01/08/20 18:04 01/08/20 01/08/20 01/09/20 18:04 18:04 00:41 WBC 14.4 H RBC 5.76 H Hgb 15.3 Hct 47.3 MCV 82 MCH 26.6 L MCHC 32.4 RDW 16.1 H Plt Count 425 Seg Neutrophils % Not Reportable Sodium 131.3 L Potassium 5.7 H Chloride 89 L Carbon Dioxide 33 H Anion Gap 9 BUN 85 H Creatinine 2.59 H Est GFR ( Amer) 30 L Glucose 113 H Lactic Acid 1.8 Calcium 9.7 Total Bilirubin 2.2 H AST 87 H Alkaline Phosphatase 186 H Total Protein 7.4 Albumin 4.1 01/08/20 18:04 Creatine Kinase 41 L Impressions: Chest X-Ray 01/08/20 17:51 IMPRESSION: CARDIOMEGALY WITH VASCULAR CONGESTION AND BILATERAL PLEURAL EFFUSIONS. NO SIGNIFICANT INTERVAL CHANGE. Assessment & Plan - Diagnosis (1) Lung cancer metastatic to brain Is this a current diagnosis for this admission?: Yes Plan: All treatment has been on hold. Further CT report later today. (2) Loculated pleural effusion Is this a current diagnosis for this admission?: Yes Plan: I discussed his care with Radiology. They will try to do US guided thoracentesis later today. However, I will repeat INR today. He was on Eliquis prior to admission. He is on SC heparin currently. This will need to be held prior to the procedure. Continue ABX as well, for possible pneumonia.
[2020-01-09] MEDS ORDERED: PROMETHAZINE HCL INJ 25 MG/1 ML VIAL ONE (09:17)
[2020-01-09] MEDS: CEFEPIME HCL 2 GM in DEXTROSE 5%-WATER 50 ML IV SCH ×2 (09:22→23:21)
[2020-01-09] MEDS: DOCUSATE SODIUM 100 MG CAPSULE PO SCH ×2 (09:23→17:26)
[2020-01-09] MEDS ORDERED: PROMETHAZINE HCL INJ 25 MG/1 ML VIAL IV ONE (09:30)
[2020-01-09] MEDS ORDERED: CEFEPIME 2 GM/D5W RTU 2 GM/50 ML RTUPB IV SCH (10:00)
[2020-01-09 10:50] LABS: INTERNATIONAL RATION (INR) 4.25; PROTHROMBIN TIME 40.4 SEC (11.4-15.4)
[2020-01-09 10:51] LABS: HEMATOCRIT 45.9 % (37.9-51.0); HEMOGLOBIN 14.5 g/dL (13.5-17.0); MEAN CORPUSCULAR HEMOGLOBIN 26.4 pg (27.0-33.4); MEAN CORPUSCULAR HGB CONC 31.7 g/dL (32.0-36.0); MEAN CORPUSCULAR VOLUME 83 fl (80-97); PLATELET COUNT 410 10^3/uL (150-450); RED BLOOD COUNT 5.52 10^6/uL (4.35-5.55); RED CELL DISTRIBUTION WIDTH 15.7 % (11.5-14.0); WHITE BLOOD COUNT 17.2 10^3/uL (4.0-10.5)
[2020-01-09 10:52] LABS: D-DIMER 2.24 ug/mL (0.00-0.50)
[2020-01-09 11:03] LABS: ANION GAP 10 (5-19); BLOOD UREA NITROGEN 84 mg/dL (7-20); C-REACTIVE PROTEIN 40.6 mg/L (<10.0); CARBON DIOXIDE 27 mmol/L (22-30); CHLORIDE 93 mmol/L (98-107); GLUCOSE 132 mg/dL (75-110); POTASSIUM 4.9 mmol/L (3.6-5.0)
[2020-01-09 11:11] LABS: ABSOLUTE LYMPHOCYTES# (MANUAL) 0.5 10^3/uL (0.5-4.7); ABSOLUTE MONOCYTES # (MANUAL) 0.7 10^3/uL (0.1-1.4); BAND NEUTROPHILS % (MANUAL) 2 % (3-5); BASOPHILS % (MANUAL) 0 % (0-2); EOSINOPHILS % (MANUAL) 0 % (0-6); LYMPHOCYTES % (MANUAL) 3 % (13-45); MONOCYTES % (MANUAL) 4 % (3-13); SEGMENTED NEUTROPHILS % (MAN) 91 % (42-78); TOTAL CELLS COUNTED 100
[2020-01-09 11:12] LABS: ANISOCYTOSIS SLIGHT; PLATELET CLUMPS PRESENT; PLATELET COMMENT ADEQUATE; POLYCHROMASIA SLIGHT
[2020-01-09 11:24] LABS: ARTERIAL BLOOD BASE EXCESS -4.3 mmol/L; ARTERIAL BLOOD FIO2 4L; ARTERIAL BLOOD H2CO3 1.42 mmol/L (1.05-1.35); ARTERIAL BLOOD HCO3 22.5 mmol/L (20-24); ARTERIAL BLOOD O2 SATURATION 92.3 % (94-98); ARTERIAL BLOOD PCO2 47.3 mmHg (35-45); ARTERIAL BLOOD PO2 70.4 mmHg (80-100); ARTERIAL BLOOD TOTAL CO2 23.9 mmol/L (23-27)
[2020-01-09] MEDS: AMIODARONE HCL 200 MG TABLET PO SCH (12:16)
[2020-01-09] MEDS: METOPROLOL SUCCINATE 50 MG TAB.SR.24H PO SCH (12:16)
[2020-01-09] MEDS: DEXAMETHASONE SOD PHOSPHATE INJ 4 MG/1 ML VIAL IV SCH ×2 (13:19→23:22)
[2020-01-09] MEDS ORDERED: PHYTONADIONE 5 MG TABLET PO ONE ×2 (14:30→15:30)
--- NOTE | 2020-01-09 14:31 | RADIOLOGY REPORT (SQ) ---
EXAM DESCRIPTION: CT CHEST WITHOUT IMAGES COMPLETED DATE/TIME: 01/09/2020 2:05 pm REASON FOR STUDY: dypnea, hypoxia COMPARISON: 01/05/2020. TECHNIQUE: CT scan performed of the chest without intravenous contrast. Images reviewed with lung, soft tissue and bone windows. Reconstructed coronal and sagittal MPR images reviewed. All images st ored on PACS. All CT scanners at this facility use dose modulation, iterative reconstruction, and/or weight based d osing when appropriate to reduce radiation dose to as low as reasonably achievable (ALARA). [facility]: Dose Right [facility]: CareDose [facility]: Dose Right [facility]: Teradose 4D [facility]: Iframe Apps RADIATION DOSE: CT Rad equipment meets quality standard of care and radiation dose reduction techniq ues were employed. CTDIvol: 10.6 mGy. DLP: 381 mGy-cm. mGy. LIMITATIONS: No technical limitations. FINDINGS: LUNGS AND PLEURA: Large loculated pleural effusions unchanged. Emphysematous changes and chronic pulmonary fibrosis with scarring. HILAR AND MEDIASTINAL STRUCTURES: Confluent upper mediastinal adenopathy with right hilar mass unchan ged. HEART AND VASCULAR STRUCTURES: No aneurysm. Small pericardial effusion. UPPER ABDOMEN: No significant findings. Limited exam. THYROID AND OTHER SOFT TISSUES: Right supraclavicular lymph node unchanged. BONES: No significant finding. HARDWARE: PICC line. OTHER: No other significant findings. IMPRESSION: NO SIGNIFICANT CHANGE. LARGE LOCULATED PLEURAL EFFUSIONS, EMPHYSEMATOUS CHANGES WITH PU LMONARY FIBROSIS, AND ADENOPATHY ARE UNCHANGED. TECHNICAL DOCUMENTATION: JOB ID: [id number] Quality ID # [id number]: Final reports with documentation of one or more dose reduction techniques (e.g., Au tomated exposure control, adjustment of the mA and/or kV according to patient size, use of iterative reconstruction technique) 2010 [employer]- All Rights Reserved Reading location - IP/workstation name: [email or web address]
[2020-01-09] MEDS ORDERED: LIDOCAINE 2% URO-JET 5 ML KIT MM ONE (15:30)
[2020-01-09] MEDS: LINEZOLID 600 MG/300 ML RTUPB IV SCH ×2 (17:12→17:14)
[2020-01-09] MEDS ORDERED: APIXABAN 5 MG TABLET PO SCH (18:00)
[2020-01-09] MEDS ORDERED: NORMAL SALINE 250 ML IV PRN ×2 (19:01)
--- NOTE | 2020-01-09 19:14 | PDOC PROGRESS REPORT ---
Subjective Progress Note for:: 01/09/20 Subjective:: Patient is a 64-year-old male with a past medical history of CHF, A. 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 Patient was seen on morning rounds. He is found sitting up, comfortably, on room air, though with noted agitation and confusion. At the time of my assessment, the patient stated that he was still in [place]. He was also noted to be quite restless and fidgeting with linens and medical equipment. He did pull out his Lerma catheter shortly following my visit. The patient is able to tell me that he does not feel well but unable to specify his symptoms further. He was noted to be tachypneic with a wet sounding cough. ROS is otherwise limited. Nursing stayed in close contact throughout the day regarding the patient's clinical status and was kept apprised of his plan of care. Reason For Visit: ACUTE KIDNEY INJURY,SIRS,BILATERAL LOCULTED PLEURA Physical Exam Vital Signs: Temp Pulse Resp BP Pulse Ox 97.5 F 70 14 86/61 L 98 01/09/20 15:22 01/09/20 15:22 01/09/20 15:22 01/09/20 15:22 01/09/20 15:22 Intake & Output 01/08/20 01/09/20 01/10/20 06:59 06:59 06:59 Intake Total 1050 2860 Balance 1050 2860 Weight 75.2 kg General appearance: PRESENT: mild distress, well-developed, well-nourished, othe r - acutely ill appearing Head exam: PRESENT: atraumatic, normocephalic Eye exam: PRESENT: conjunctiva pink, EOMI, PERRLA. ABSENT: scleral icterus Mouth exam: PRESENT: dry mucosa, tongue midline Respiratory exam: PRESENT: rhonchi, symmetrical, tachypnea, other - supplemental oxygen. ABSENT: rales, wheezes Cardiovascular exam: PRESENT: RRR. ABSENT: diastolic murmur, rubs, systolic murmur Pulses: PRESENT: normal dorsalis pedis pul Vascular exam: PRESENT: normal capillary refill Rectal exam: PRESENT: deferred Gentrourinary exam: PRESENT: indwelling catheter Extremities exam: PRESENT: full ROM. ABSENT: calf tenderness, clubbing, pedal edema Musculoskeletal exam: PRESENT: ambulatory Neurological exam: PRESENT: alert, awake, oriented to person, oriented to situation, CN II-XII grossly intact, other - intermittent confusion/agitation. ABSENT: motor sensory deficit Psychiatric exam: PRESENT: appropriate affect, normal mood. ABSENT: homicidal ideation, suicidal ideation Skin exam: PRESENT: dry, intact, warm. ABSENT: cyanosis, rash Results Laboratory Results: 01/09/20 10:20 01/09/20 11:09 01/08/20 01/09/20 01/09/20 18:04 00:41 10:20 WBC 14.4 H 17.2 H RBC 5.76 H 5.52 Hgb 15.3 14.5 Hct 47.3 45.9 MCV 82 83 MCH 26.6 L 26.4 L MCHC 32.4 31.7 L RDW 16.1 H 15.7 H Plt Count 425 410 Seg Neutrophils % Not Reportable Not Reportable Carbonic Acid HCO3/H2CO3 Ratio ABG pH ABG pCO2 ABG pO2 ABG HCO3 ABG O2 Saturation ABG Base Excess FiO2 Sodium Potassium Chloride Carbon Dioxide Anion Gap BUN Creatinine Est GFR ( Amer) Est GFR (Non-Af Amer) Glucose Lactic Acid 1.8 Calcium C-Reactive Protein 01/09/20 01/09/20 01/09/20 10:20 11:09 11:09 WBC RBC Hgb Hct MCV MCH MCHC RDW Plt Count Seg Neutrophils % Carbonic Acid HCO3/H2CO3 Ratio ABG pH ABG pCO2 ABG pO2 ABG HCO3 ABG O2 Saturation ABG Base Excess FiO2 Sodium 130.4 L Cancelled Potassium 4.9 Cancelled Chloride 93 L Cancelled Carbon Dioxide 27 Cancelled Anion Gap 10 Cancelled BUN 84 H Cancelled Creatinine 2.90 H Cancelled Est GFR ( Amer) 27 L Cancelled Est GFR (Non-Af Amer) Cancelled Glucose 132 H Cancelled Lactic Acid 2.7 H Calcium 9.0 Cancelled C-Reactive Protein 40.6 H 01/09/20 11:13 WBC RBC Hgb Hct MCV MCH MCHC RDW Plt Count Seg Neutrophils % Carbonic Acid 1.42 H HCO3/H2CO3 Ratio 15:1 ABG pH 7.30 L ABG pCO2 47.3 H ABG pO2 70.4 L ABG HCO3 22.5 ABG O2 Saturation 92.3 L ABG Base Excess -4.3 FiO2 4L Sodium Potassium Chloride Carbon Dioxide Anion Gap BUN Creatinine Est GFR ( Amer) Est GFR (Non-Af Amer) Glucose Lactic Acid Calcium C-Reactive Protein 01/08/20 01/09/20 18:04 11:09 Creatine Kinase 41 L Troponin I 0.014 Impressions: Chest X-Ray 01/08/20 17:51 IMPRESSION: CARDIOMEGALY WITH VASCULAR CONGESTION AND BILATERAL PLEURAL EFFUSIONS. NO SIGNIFICANT INTERVAL CHANGE. Chest CT 01/09/20 00:00 IMPRESSION: NO SIGNIFICANT CHANGE. LARGE LOCULATED PLEURAL EFFUSIONS, EMPHYSEMATOUS CHANGES WITH PULMONARY FIBROSIS, AND ADENOPATHY ARE UNCHANGED. Assessment and Plan - Diagnosis (1) SIRS (systemic inflammatory response syndrome) Is this a current diagnosis for this admission?: Yes Plan: Blood cultures pending. Urinalysis with reflex culture pending. Chest CT negative for consolidation. COVID pending. Patient with leukocytosis, lactic acidosis, acute kidney injury, and hypotension. Is received IV fluid bolus followed by generous IV fluids. We will continue to trend lactic acid. He is empirically placed on Cefepime and Zyvox. If COVID positive, will need to start remdisivir as soon as possible and consider convalescent serum. Thoracentesis with cultures pending. Manual blood pressures this afternoon are improved to 96/60. Consider dopamine drip for renal perfusion if remains hypotensive. (2) Acute kidney failure Qualifiers: Acute renal failure type: unspecified Qualified Code(s): N17.9 - Acute kidney failure, unspecified Is this a current diagnosis for this admission?: Yes Plan: Worsened. Unclear baseline, however, with creatinine 1.34 last week. This admission Cr 2.59-> 2.90 Likely secondary to #1. Patient has received appropriate fluid resuscitation. Continue generous IV fluids. Avoid nephrotoxic medications as able; renally dosed where appropriate. Follow-up chemistry. (3) Dyspnea Qualifiers: Dyspnea type: unspecified Qualified Code(s): R06.00 - Dyspnea, unspecified Is this a current diagnosis for this admission?: Yes Plan: Unclear etiology. COVID pending D-dimer elevated, however, cannot have CTA due to acute renal failure. CT chest shows large loculated pleural effusions with emphysema changes and pulmonary fibrosis. Continue on antibiotics as above. Supplemental oxygen. (4) Hyperkalemia Is this a current diagnosis for this admission?: Yes Plan: Resolved. Likely secondary to acute kidney injury. Follow-up chemistries. (5) Leukocytosis Qualifiers: Leukocytosis type: unspecified Qualified Code(s): D72.829 - Elevated white blood cell count, unspecified Is this a current diagnosis for this admission?: Yes Plan: Trending up; WBC 14.4->17.2 Cultures and antibiotics as above. Now keeping in mind that the patient has been started on IV Decadron. Follow-up CBC. (6) Loculated pleural effusion Is this a current diagnosis for this admission?: Yes Plan: Awaiting correction of PT/INR so that patient can undergo thoracentesis. (7) Paroxysmal atrial fibrillation Is this a current diagnosis for this admission?: Yes Plan: Continue home dose metoprolol and amiodarone. Eliquis on hold secondary to coagulopathy. Monitor on telemetry. (8) Chronic anticoagulation Is this a current diagnosis for this admission?: Yes Plan: Mixed coagulopathic. PT 40.4/INR 4.25. D-dimer 2.24. Discussed with Dr. Michele; patient needs thoracentesis and therefore will place on home dose Eliquis on hold. We will provide vitamin K and FFP with goal of INR <2 so that he will be corrected well enough for the procedure. Follow up PT/INR/D-dimer - Time Time Spent with patient: 35 or more minutes Medications reviewed and adjusted accordingly: Yes Anticipated Discharge Disposition: Home with Home Health - vs home w/ hospice Anticipated Discharge Timeframe: > 72 hrs
--- NOTE | 2020-01-09 19:26 | EKG REPORT ---
SEVERITY:- ABNORMAL ECG - SINUS RHYTHM FIRST DEGREE AV BLOCK LOW VOLTAGE THROUGHOUT BORDERLINE R WAVE PROGRESSION, ANTERIOR LEADS NONSPECIFIC T ABNORMALITIES, DIFFUSE LEADS : Confirmed by: Wojciech Long MD 09-Jan-2020 19:26:16
[2020-01-09] MEDS ORDERED: (PENDING PHARMACY ID) (Budesonide/Formoterol Fumarate 1 PUFF) IH SCH (22:00)
[2020-01-10 02:34] LABS: ARTERIAL BLOOD BASE EXCESS -5.9 mmol/L; ARTERIAL BLOOD H2CO3 1.19 mmol/L (1.05-1.35); ARTERIAL BLOOD HCO3 19.7 mmol/L (20-24); ARTERIAL BLOOD O2 SATURATION 98.3 % (94-98); ARTERIAL BLOOD PCO2 39.4 mmHg (35-45); ARTERIAL BLOOD PH 7.32 (7.35-7.45); ARTERIAL BLOOD PO2 126.6 mmHg (80-100); ARTERIAL BLOOD TOTAL CO2 20.9 mmol/L (23-27)
[2020-01-10 02:38] LABS: ARTERIAL BLOOD FIO2 60%
[2020-01-10] MEDS: DEXAMETHASONE SOD PHOSPHATE INJ 4 MG/1 ML VIAL IV SCH ×3 (05:14→21:14)
[2020-01-10] MEDS: LINEZOLID 600 MG/300 ML RTUPB IV SCH ×2 (05:14→18:12)
[2020-01-10] MEDS: NORMAL SALINE 1000 ML 1,000 ML IV PRN ×2 (05:14→13:34)
[2020-01-10] MEDS: PANTOPRAZOLE SODIUM 40 MG TABLET.DR PO SCH (05:19)
[2020-01-10 06:05] LABS: HEMOGLOBIN 14.4 g/dL (13.5-17.0); MEAN CORPUSCULAR HEMOGLOBIN 25.8 pg (27.0-33.4); MEAN CORPUSCULAR HGB CONC 31.4 g/dL (32.0-36.0); MEAN CORPUSCULAR VOLUME 82 fl (80-97); PLATELET COUNT 375 10^3/uL (150-450); RED BLOOD COUNT 5.59 10^6/uL (4.35-5.55); RED CELL DISTRIBUTION WIDTH 16.1 % (11.5-14.0); WHITE BLOOD COUNT 19.9 10^3/uL (4.0-10.5)
[2020-01-10 06:12] LABS: INTERNATIONAL RATION (INR) 3.35; PROTHROMBIN TIME 33.7 SEC (11.4-15.4)
[2020-01-10 06:26] LABS: ANION GAP 14 (5-19); BLOOD UREA NITROGEN 86 mg/dL (7-20); CALCIUM 9.2 mg/dL (8.4-10.2); CARBON DIOXIDE 24 mmol/L (22-30); CHLORIDE 94 mmol/L (98-107); CHOLESTEROL 111.29 mg/dL (0-200); GLUCOSE 108 mg/dL (75-110); TRIGLYCERIDES 109 mg/dL (<150)
[2020-01-10 06:37] LABS: DIRECT LDL 63 mg/dL (<100)
[2020-01-10 07:35] LABS: APPEARANCE,URINE TURBID; BILIRUBIN,URINE NEGATIVE (NEGATIVE); COLOR,URINE AMBER; GLUCOSE, URINE 50 mg/dL (NEGATIVE); KETONES,URINE TRACE mg/dL (NEGATIVE); PROTEIN,URINE 100 mg/dL (NEGATIVE); URINE SPECIFIC GRAVITY 1.025
[2020-01-10] MEDS: LEVALBUTEROL HCL NEB 0.63 MG/3 ML AMPUL NEB PRN ×2 (08:11→22:13)
[2020-01-10] MEDS ORDERED: NORMAL SALINE 250 ML IV PRN ×2 (08:11)
[2020-01-10] MEDS ORDERED: PHYTONADIONE INJ 10 MG/1 ML AMPULE SUBCUT ONE (08:11)
[2020-01-10] MEDS ORDERED: LACTULOSE SYRUP 20 GM/30 ML UDCUP PO ONE (08:17)
--- NOTE | 2020-01-10 08:22 | Progress Note ---
Provider Note Provider Note: Due to COVID-19 restrictions, I was not able to physically examine patient today. However, I did speak with nurses and other physicians involved in his care. He is currently BiPap dependent, has little to no urine output, and continues to have worsening lab results. I have left a message with his . I did review the CT scans yesterday in radiology and compared to previous, there was no significant change in his cancer. However, pleural effusions are a bit worse. Although he may benefit from thoracentesis on the left side, due to kidney function and elevated INR, this has not been safe. I ordered a dose of Vit K yesterday. All blood thinners have been on hold. D-dimer has been elevated. I will order Fibrinogen to check for DIC. He is on appropriate Antibiotics. We are awaiting COVID-19 screening. His potassium is still markedly elevated. He is receiving lactulose. I will continue to follow. Please call with any concerns.
[2020-01-10] MEDS: DOPAMINE HCL/DEXTROSE 5%-WATER 800 MG/250 ML RTUINJ IV PRN (08:59)
[2020-01-10] MEDS: METOPROLOL SUCCINATE 50 MG TAB.SR.24H PO SCH (09:28)
[2020-01-10] MEDS: DOCUSATE SODIUM 100 MG CAPSULE PO SCH ×2 (09:28→17:04)
[2020-01-10] MEDS: AMIODARONE HCL 200 MG TABLET PO SCH (09:28)
[2020-01-10] MEDS: CHOLECALCIFEROL (D3) 400 UNIT TABLET PO SCH (09:29)
[2020-01-10] MEDS: ASCORBIC ACID 500 MG TABLET PO SCH ×2 (09:29→17:04)
[2020-01-10] MEDS: CEFEPIME HCL 2 GM in DEXTROSE 5%-WATER 50 ML IV SCH (10:57)
[2020-01-10] MEDS: FLUTICASONE/VILANTEROL 200-25 MCG/DOSE IH SCH (10:58)
[2020-01-10 17:23] LABS: FREE T3 1.4 pg/mL (2.77-5.27); FREE T4 (FREE THYROXINE) 1.64 ng/dL (0.78-2.19)
[2020-01-10 17:39] LABS: ANION GAP 16 (5-19); BLOOD UREA NITROGEN 95 mg/dL (7-20); CALCIUM 9.6 mg/dL (8.4-10.2); CARBON DIOXIDE 24 mmol/L (22-30); CHLORIDE 93 mmol/L (98-107); GLUCOSE 129 mg/dL (75-110)
--- NOTE | 2020-01-10 18:09 | PDOC PROGRESS REPORT ---
Subjective Progress Note for:: 01/10/20 Subjective:: Patient is a 64-year-old male with a past medical history of CHF, A. 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 Patient was seen on afternoon rounds with his present. He is found sitting up to the edge of the bed comfortably on supplemental oxygen by nasal cannula. He continues to be restless with frequent repositioning; attributes this to discomfort with the bed. He reports that his breathing is "about the same" as yesterday. He again states that he feels unwell but he has unable to specify his symptoms further. He specifically denies fever, chest pain, palpitations, abdominal pain, nausea and vomiting. Reports good appetite. Nursing reports blood pressures much improved after start of dopamine drip. However, he is only had 10 mL urine output with Lerma catheter in place today. Reason For Visit: ACUTE KIDNEY INJURY,SIRS,BILATERAL LOCULTED PLEURA Physical Exam Vital Signs: Temp Pulse Resp BP Pulse Ox 97.2 F 93 20 144/91 H 98 01/10/20 16:05 01/10/20 17:02 01/10/20 16:05 01/10/20 17:02 01/10/20 16:05 Intake & Output 01/09/20 01/10/20 01/11/20 06:59 06:59 06:59 Intake Total 1050 5911 1589 Output Total 20 0 Balance 1050 5891 1589 Weight 75.2 kg 75.1 kg 75.1 kg General appearance: PRESENT: hard of hearing, mild distress, well-developed, other - Acutely ill-appearing Head exam: PRESENT: atraumatic, normocephalic Eye exam: PRESENT: conjunctiva pink, EOMI, PERRLA. ABSENT: scleral icterus Mouth exam: PRESENT: moist, tongue midline Respiratory exam: PRESENT: clear to auscultation stefany, decreased breath sounds - Bibasilar, prolonged expiratory phas, symmetrical, tachypnea, other - Supplem ental oxygen by nasal cannula. ABSENT: rales, rhonchi, wheezes Cardiovascular exam: PRESENT: RRR. ABSENT: diastolic murmur, rubs, systolic murmur Pulses: PRESENT: +1 pedal pulses bilateral Vascular exam: PRESENT: pallor GI/Abdominal exam: PRESENT: normal bowel sounds, soft. ABSENT: distended, gua rding, mass, organolmegaly, rebound, tenderness Rectal exam: PRESENT: deferred Gentrourinary exam: PRESENT: indwelling catheter Extremities exam: PRESENT: full ROM, +2 edema - BLE. ABSENT: calf tenderness, clubbing, pedal edema Musculoskeletal exam: PRESENT: ambulatory Neurological exam: PRESENT: alert, awake, oriented to person, oriented to place, oriented to time, oriented to situation, CN II-XII grossly intact. ABSENT: motor sensory deficit Psychiatric exam: PRESENT: appropriate affect, normal mood. ABSENT: homicidal ideation, suicidal ideation Focused psych exam: PRESENT: restlessness Skin exam: PRESENT: dry, intact, warm. ABSENT: cyanosis, rash Results Laboratory Results: 01/10/20 04:50 01/10/20 16:23 01/09/20 01/09/20 01/10/20 19:45 19:45 01:45 WBC RBC Hgb Hct MCV MCH MCHC RDW Plt Count Carbonic Acid 1.19 HCO3/H2CO3 Ratio 16:1 ABG pH 7.32 L ABG pCO2 39.4 ABG pO2 126.6 H ABG HCO3 19.7 L ABG O2 Saturation 98.3 H ABG Base Excess -5.9 FiO2 60% Sodium Potassium Chloride Carbon Dioxide Anion Gap BUN Creatinine Est GFR ( Amer) Glucose Lactic Acid 4.4 H Calcium Magnesium Triglycerides Cholesterol LDL Cholesterol Direct VLDL Cholesterol HDL Cholesterol TSH Free T4 Free T3 pg/mL Urine Color Urine Appearance Urine pH Ur Specific Bozman Urine Protein Urine Glucose (UA) Urine Ketones Urine Blood Urine RBC (Auto) Blood Type B POSITIVE Antibody Screen NEGATIVE 01/10/20 01/10/20 01/10/20 04:50 04:50 04:50 WBC 19.9 H RBC 5.59 H Hgb 14.4 Hct 46.0 MCV 82 MCH 25.8 L MCHC 31.4 L RDW 16.1 H Plt Count 375 Carbonic Acid HCO3/H2CO3 Ratio ABG pH ABG pCO2 ABG pO2 ABG HCO3 ABG O2 Saturation ABG Base Excess FiO2 Sodium 132.1 L Potassium 6.0 H* D Chloride 94 L Carbon Dioxide 24 Anion Gap 14 BUN 86 H Creatinine 3.64 H Est GFR ( Amer) 20 L Glucose 108 Lactic Acid Calcium 9.2 Magnesium 2.3 Triglycerides 109 Cholesterol 111.29 LDL Cholesterol Direct 63 VLDL Cholesterol 22.0 HDL Cholesterol 27 L TSH 6.72 H Free T4 Free T3 pg/mL Urine Color Urine Appearance Urine pH Ur Specific Boz[place] Urine Protein Urine Glucose (UA) Urine Ketones Urine Blood Urine RBC (Auto) Blood Type Antibody Screen 01/10/20 01/10/20 01/10/20 04:50 06:20 16:23 WBC RBC Hgb Hct MCV MCH MCHC RDW Plt Count Carbonic Acid HCO3/H2CO3 Ratio ABG pH ABG pCO2 ABG pO2 ABG HCO3 ABG O2 Saturation ABG Base Excess FiO2 Sodium 133.0 L Potassium 6.0 H* Chloride 93 L Carbon Dioxide 24 Anion Gap 16 BUN 95 H Creatinine 3.87 H Est GFR ( Amer) 19 L Glucose 129 H Lactic Acid Calcium 9.6 Magnesium Triglycerides Cholesterol LDL Cholesterol Direct VLDL Cholesterol HDL Cholesterol TSH Free T4 1.64 Free T3 pg/mL 1.40 L Urine Color SABA Urine Appearance TURBID Urine pH 5.0 Ur Specific Bozman 1.025 Urine Protein 100 H Urine Glucose (UA) 50 H Urine Ketones TRACE H Urine Blood LARGE H Urine RBC (Auto) >182 Blood Type Antibody Screen 01/08/20 01/09/20 01/10/20 18:04 11:09 04:50 Creatine Kinase 41 L Troponin I 0.014 NT-Pro-B Natriuret Pep 3000 H Impressions: Chest X-Ray 01/08/20 17:51 IMPRESSION: CARDIOMEGALY WITH VASCULAR CONGESTION AND BILATERAL PLEURAL EFFUSIONS. NO SIGNIFICANT INTERVAL CHANGE. Chest CT 01/09/20 00:00 IMPRESSION: NO SIGNIFICANT CHANGE. LARGE LOCULATED PLEURAL EFFUSIONS, EMPHY SEMATOUS CHANGES WITH PULMONARY FIBROSIS, AND ADENOPATHY ARE UNCHANGED. Assessment and Plan - Diagnosis (1) SIRS (systemic inflammatory response syndrome) Is this a current diagnosis for this admission?: Yes Plan: Blood cultures negative at 24 hours Urinalysis with reflex culture pending. Chest CT negative for consolidation. COVID pending. Patient with leukocytosis, lactic acidosis, acute kidney injury, and hypotension. Lactic acid trending up. Received IV fluid bolus followed by generous IV fluids. He is empirically placed on Cefepime and Zyvox. If COVID positive, will need to start remdisivir as soon as possible and consider convalescent serum. Thoracentesis with cultures pending correction of INR. Have started dopamine drip for renal perfusion; improved blood pressures today. Now on stress dose steroids; dexamethasone 4 mg IV every 8 hours. Continue vitamin C, vitamin D, melatonin supplementation. Holding zinc secondary to interaction with Zyvox. (2) Acute kidney failure Qualifiers: Acute renal failure type: unspecified Qualified Code(s): N17.9 - Acute kidney failure, unspecified Is this a current diagnosis for this admission?: Yes Plan: Continues to worsen Unclear baseline, however, with creatinine 1.34 last week. This admission Cr 2.59-> 2.90-> 3.64-> 3.87 Anuric Renal U/S pending Likely secondary to #1. Patient has received appropriate fluid resuscitation and FFP x 6 units Continue generous IV fluids. Avoid nephrotoxic medications as able; renally dosed where appropriate. Have started Dopamin gtt Nephrology consulted; discussed with Dr. Khan this evening. Follow-up chemistry. (3) Dyspnea Qualifiers: Dyspnea type: unspecified Qualified Code(s): R06.00 - Dyspnea, unspecified Is this a current diagnosis for this admission?: Yes Plan: Unclear etiology; multifactorial r/t Lung CA, pleural effusions, volume overload COVID pending D-dimer elevated, however, cannot have CTA due to acute renal failure. CT chest shows large loculated pleural effusions with emphysema changes and pulmonary fibrosis. Continue on antibiotics as above. Supplemental oxygen. (4) Hyperkalemia Is this a current diagnosis for this admission?: Yes Plan: Secondary to ARF Lactulose x 1 w/o improvement. EKG pending. Nursing reports high concern for dysphasia/aspiration. Import they have noted coughing following liquids. And concerned about potential aspiration of Kayexalate. We will continue IV fluids as mentioned above. We will plan for calcium gluconate, insulin, dextrose. Follow-up chemistries. (5) Leukocytosis Qualifiers: Leukocytosis type: unspecified Qualified Code(s): D72.829 - Elevated white blood cell count, unspecified Is this a current diagnosis for this admission?: Yes Plan: Trending up; WBC 14.4->17.2-> 19.9 Cultures and antibiotics as above. Now keeping in mind that the patient has been started on IV Decadron. Follow-up CBC. (6) Loculated pleural effusion Is this a current diagnosis for this admission?: Yes Plan: Awaiting correction of PT/INR so that patient can undergo thoracentesis. (7) Paroxysmal atrial fibrillation Is this a current diagnosis for this admission?: Yes Plan: Continue home dose metoprolol and amiodarone. Eliquis on hold secondary to coagulopathy. Monitor on telemetry. (8) Chronic anticoagulation Is this a current diagnosis for this admission?: Yes Plan: Mixed coagulopathic. PT 40.4/INR 4.25. D-dimer 2.24. Discussed with Dr. Michele; patient needs thoracentesis and therefore will place on home dose Eliquis on hold. We will provide vitamin K and FFP with goal of INR <2 so that he will be corrected well enough for the procedure. Follow up PT/INR/D-dimer (9) Full code status Is this a current diagnosis for this admission?: Yes - Time Time Spent with patient: 35 or more minutes Medications reviewed and adjusted accordingly: Yes Anticipated Discharge Disposition: Unclear Anticipated Discharge Timeframe: >72 hrs
[2020-01-10] MEDS ORDERED: INSULIN REG, HUMAN 100 UNIT/ML 3 ML VIAL (PYX) IV ONE (18:45)
[2020-01-10] MEDS ORDERED: DEXTROSE 50%-WATER 25 GM/50 ML DISP.SYRIN IV ONE (18:45)
[2020-01-10] MEDS ORDERED: CALCIUM GLUCONATE 1000 MG/10 ML INJ IV ONE ×2 (18:50→19:15)
[2020-01-10] MEDS ORDERED: CALCIUM GLUC IN NACL, ISO-OSM 1 GM/50 ML RTUPB IV ONE (19:00)
[2020-01-10] MEDS: MAGNESIUM SULFATE/D5W 1 GM/100 ML RTUPB IV SCH ×2 (20:01→21:14)
--- NOTE | 2020-01-10 22:11 | RADIOLOGY REPORT (SQ) ---
CLINICAL INDICATION: acute kidney failure. . TECHNIQUE: Real time multiplanar ultrasonographic flores scale imaging was obtained of the kidneys. 23 images obtained. COMPARISON: None. CORRELATION: January 05, 2020. FINDINGS: The right kidney measures 10.1 x 4.6 x 4.7 centimeters. No evidence of hydronephrosis, nephrolithiasis or solid mass lesion. The renal parenchyma is of normal contour and echogenicity. The left kidney measures 10.4 x 4.8 x 5.4 centimeters. No evidence of hydronephrosis, nephrolithiasis or solid mass lesion. The renal parenchyma is of normal contour and echogenicity. Urinary bladder decompressed with Lerma catheter. Trace ascites IMPRESSION: Unremarkable renal sonogram. No evidence of hydronephrosis to suggest obstruction as the cause of the patient's renal dysfunction.
[2020-01-11] MEDS: LORAZEPAM INJ 2 MG/1 ML VIAL IV PRN ×2 (01:48→23:05)
[2020-01-11] MEDS: NORMAL SALINE 1000 ML 1,000 ML IV PRN (03:30)
[2020-01-11 05:41] LABS: INTERNATIONAL RATION (INR) 3.26
[2020-01-11 05:50] LABS: HEMATOCRIT 50.7 % (37.9-51.0); HEMOGLOBIN 15.6 g/dL (13.5-17.0); MEAN CORPUSCULAR HEMOGLOBIN 25.9 pg (27.0-33.4); MEAN CORPUSCULAR HGB CONC 30.9 g/dL (32.0-36.0); MEAN CORPUSCULAR VOLUME 84 fl (80-97); PLATELET COUNT 320 10^3/uL (150-450); RED BLOOD COUNT 6.04 10^6/uL (4.35-5.55); RED CELL DISTRIBUTION WIDTH 16.4 % (11.5-14.0); WHITE BLOOD COUNT 24.4 10^3/uL (4.0-10.5)
[2020-01-11] MEDS: PANTOPRAZOLE SODIUM 40 MG TABLET.DR PO SCH (05:50)
[2020-01-11] MEDS: DEXAMETHASONE SOD PHOSPHATE INJ 4 MG/1 ML VIAL IV SCH ×2 (05:55→13:36)
[2020-01-11] MEDS: LINEZOLID 600 MG/300 ML RTUPB IV SCH ×2 (06:06→18:25)
[2020-01-11] MEDS ORDERED: DEXTROSE 50%-WATER 25 GM/50 ML DISP.SYRIN IV PRN ×2 (08:02)
[2020-01-11] MEDS ORDERED: GLUCAGON,HUMAN RECOMB 1 MG INJ SUBCUT PRN (08:02)
[2020-01-11] MEDS ORDERED: DEXTROSE 40% GEL 15 GM TUBE PO PRN ×2 (08:02)
[2020-01-11] MEDS ORDERED: PROMETHAZINE HCL INJ 25 MG/1 ML VIAL IV ONE (08:30)
[2020-01-11] MEDS ORDERED: FUROSEMIDE INJ/PF 20 MG/2 ML SDV IV ONE (08:30)
[2020-01-11 09:28] LABS: ALBUMIN 4.7 g/dL (3.5-5.0); ALKALINE PHOSPHATASE 161 U/L (38-126); ASPARTATE AMINO TRANSFERASE 749 U/L (17-59); BILIRUBIN,TOTAL 3.6 mg/dL (0.2-1.3); BLOOD UREA NITROGEN 98 mg/dL (7-20); CALCIUM 9.3 mg/dL (8.4-10.2); CARBON DIOXIDE 22 mmol/L (22-30); CHLORIDE 92 mmol/L (98-107); GLUCOSE 132 mg/dL (75-110); POTASSIUM 5.7 mmol/L (3.6-5.0); TOTAL PROTEIN 8.7 g/dL (6.3-8.2)
--- NOTE | 2020-01-11 09:35 | RADIOLOGY REPORT (SQ) ---
EXAM DESCRIPTION: CHEST SINGLE VIEW IMAGES COMPLETED DATE/TIME: 01/11/2020 9:11 am REASON FOR STUDY: dyspnea, hypoxia COMPARISON: 18 20 NUMBER OF VIEWS: One view. TECHNIQUE: Single frontal radiographic image of the chest acquired. LIMITATIONS: None. FINDINGS: LUNGS AND PLEURA: Bilateral airspace disease and pleural effusions not significantly samuels ed. MEDIASTINUM AND HEART: Stable heart size and mediastinal structures. SUPPORT DEVICES: Appropriate location without change. BONY STRUCTURES: No acute findings. HARDWARE: None. OTHER: No other significant finding. IMPRESSION: STABLE APPEARANCE OF THE CHEST. SUPPORT DEVICES UNCHANGED. Reading location - IP/workstation name: [email or web address]
[2020-01-11 09:43] LABS: ANION GAP 20 (5-19)
[2020-01-11 09:53] LABS: ARTERIAL BLOOD BASE EXCESS -12.9 mmol/L; ARTERIAL BLOOD H2CO3 1.39 mmol/L (1.05-1.35); ARTERIAL BLOOD HCO3 15.8 mmol/L (20-24); ARTERIAL BLOOD O2 SATURATION 95.5 % (94-98); ARTERIAL BLOOD PCO2 46.2 mmHg (35-45); ARTERIAL BLOOD PO2 98.2 mmHg (80-100); ARTERIAL BLOOD TOTAL CO2 17.2 mmol/L (23-27)
[2020-01-11] MEDS ORDERED: CEFEPIME 1 GM/D5W RTU 1 GM/50 ML RTUPB IV SCH (10:00)
[2020-01-11 10:11] LABS: ARTERIAL BLOOD FIO2 50%; ARTERIAL BLOOD PH 7.15 (7.35-7.45)
--- NOTE | 2020-01-11 10:26 | PDOC PROGRESS REPORT ---
Subjective Progress Note for:: 01/11/20 Subjective:: Patient is a 64-year-old male with a past medical history of CHF, A. 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 Patient was seen on morning rounds with his present. He is found sitting up to the chair on BiPAP. He has increased work of breathing today with retractions and accessory muscle use; patient reports fatigue, dyspnea, and chest discomfort. He continues to be restless with frequent repositioning. He specifically denies fever, palpitations, abdominal pain, nausea and vomiting. Patient has no other questions or concerns at this time. Discussed clinical status and POC w/ nursing and RT. Reason For Visit: ACUTE KIDNEY INJURY,SIRS,BILATERAL LOCULTED PLEURA Physical Exam Vital Signs: Temp Pulse Resp BP Pulse Ox 97.3 F 92 20 128/51 H 94 01/11/20 07:44 01/11/20 08:22 01/11/20 09:46 01/11/20 08:22 01/11/20 04:00 Intake & Output 01/10/20 01/11/20 01/12/20 06:59 06:59 06:59 Intake Total 5911 3766 Output Total 20 35 Balance 5891 3731 Weight 75.1 kg 75.1 kg General appearance: PRESENT: hard of hearing, well-developed, other - moderate distress, acutely ill appearing Head exam: PRESENT: atraumatic, normocephalic Eye exam: PRESENT: conjunctiva pink, EOMI, PERRLA. ABSENT: scleral icterus Mouth exam: PRESENT: moist, tongue midline Teeth exam: PRESENT: poor dentation Respiratory exam: PRESENT: accessory muscle use, decreased breath sounds - absent bibasilar; diminshed throughout, retraction, symmetrical, tachypnea, other - BiPAP. ABSENT: rales, rhonchi, wheezes Cardiovascular exam: PRESENT: RRR. ABSENT: diastolic murmur, rubs, systolic murmur Pulses: PRESENT: +1 pedal pulses bilateral Vascular exam: PRESENT: pallor - bilateral hands are dusky GI/Abdominal exam: PRESENT: normal bowel sounds, soft. ABSENT: distended, guarding, mass, organolmegaly, rebound, tenderness Rectal exam: PRESENT: deferred Extremities exam: PRESENT: full ROM, +2 edema - bilateral +2-3 pitting edema now extending to mid thigh. ABSENT: calf tenderness, clubbing, pedal edema Musculoskeletal exam: PRESENT: ambulatory Neurological exam: PRESENT: alert, awake, oriented to person, oriented to place, oriented to time, oriented to situation, CN II-XII grossly intact, other - fatigued. ABSENT: motor sensory deficit Psychiatric exam: PRESENT: appropriate affect, normal mood. ABSENT: homicidal ideation, suicidal ideation Skin exam: PRESENT: cyanosis - bilateral hands, dry, intact, mottled, warm. ABSENT: rash Results Laboratory Results: 01/11/20 05:04 01/11/20 08:47 01/09/20 01/10/20 01/10/20 19:45 04:50 16:23 WBC RBC Hgb Hct MCV MCH MCHC RDW Plt Count Sodium 133.0 L Potassium 6.0 H* Chloride 93 L Carbon Dioxide 24 Anion Gap 16 BUN 95 H Creatinine 3.87 H Est GFR ( Amer) 19 L Est GFR (Non-Af Amer) Glucose 129 H Lactic Acid Calcium 9.6 Total Bilirubin AST Alkaline Phosphatase Total Protein Albumin Free T4 1.64 Free T3 pg/mL 1.40 L Blood Type B POSITIVE Antibody Screen NEGATIVE 01/11/20 01/11/20 01/11/20 05:04 05:04 05:04 WBC 24.4 H RBC 6.04 H Hgb 15.6 Hct 50.7 MCV 84 MCH 25.9 L MCHC 30.9 L RDW 16.4 H Plt Count 320 Sodium Cancelled Potassium Cancelled Chloride Cancelled Carbon Dioxide Cancelled Anion Gap Cancelled BUN Cancelled Creatinine Cancelled Est GFR ( Amer) Cancelled Est GFR (Non-Af Amer) Cancelled Glucose Cancelled Lactic Acid 5.5 H Calcium Cancelled Total Bilirubin Cancelled AST Cancelled Alkaline Phosphatase Cancelled Total Protein Cancelled Albumin Cancelled Free T4 Free T3 pg/mL Blood Type Antibody Screen 01/11/20 01/11/20 08:47 08:47 WBC RBC Hgb Hct MCV MCH MCHC RDW Plt Count Sodium 133.5 L Potassium 5.7 H Chloride 92 L Carbon Dioxide 22 Anion Gap 20 H BUN 98 H Creatinine 4.50 H Est GFR ( Amer) 16 L Est GFR (Non-Af Amer) Glucose 132 H Lactic Acid 6.6 H Calcium 9.3 Total Bilirubin 3.6 H AST 749 H Alkaline Phosphatase 161 H Total Protein 8.7 H Albumin 4.7 Free T4 Free T3 pg/mL Blood Type Antibody Screen 01/08/20 01/09/20 01/10/20 18:04 11:09 04:50 Creatine Kinase 41 L Troponin I 0.014 NT-Pro-B Natriuret Pep 3000 H Impressions: Chest CT 01/09/20 00:00 IMPRESSION: NO SIGNIFICANT CHANGE. LARGE LOCULATED PLEURAL EFFUSIONS, EMPHYSEMATOUS CHANGES WITH PULMONARY FIBROSIS, AND ADENOPATHY ARE UNCHANGED. Renal Ultrasound 01/10/20 00:00 IMPRESSION: Unremarkable renal sonogram. No evidence of hydronephrosis to suggest obstruction as the cause of the patient's renal dysfunction. Chest X-Ray 01/11/20 00:00 IMPRESSION: STABLE APPEARANCE OF THE CHEST. SUPPORT DEVICES UNCHANGED. Assessment and Plan - Diagnosis (1) SIRS (systemic inflammatory response syndrome) Is this a current diagnosis for this admission?: Yes Plan: Worsening; leukocytosis and lactic acidosis trending up, kidney failure worsening, PFTs. Blood cultures negative at 48 hours Urinalysis suggestive of UTI, however, with multiple traumatic jacobo attempts. Chest CT negative for consolidation. CXR read as stable per radiology, worsening appearance on personal review w/ ? ground glass appearance (especially to Rt middle) COVID pending. Received IV fluid bolus followed by generous IV fluids. >11 L infused (combination IVF, FFP, medications) He is empirically placed on Cefepime and Zyvox. Addition of Zosyn today. Have requested Infectious Disease consult. If COVID positive, will need to start remdisivir as soon as possible and consider convalescent serum. Thoracentesis with cultures pending correction of INR. Unfortunately, INR remains essentially unchanged. Continue dopamine drip for renal perfusion; improved blood pressures though w/ anuria and worsening renal function. Now on stress dose steroids; dexamethasone 4 mg IV every 8 hours. Continue vitamin C, vitamin D, melatonin supplementation. Holding zinc secondary to interaction with Zyvox. (2) Acute kidney failure Qualifiers: Acute renal failure type: unspecified Qualified Code(s): N17.9 - Acute kidney failure, unspecified Is this a current diagnosis for this admission?: Yes Plan: Continues to worsen Unclear baseline, however, with creatinine 1.34 last week. This admission Cr 2.59-> 2.90-> 3.64-> 3.87-> 4.50 Anuric Renal U/S unremarkable. Likely secondary to #1. Patient has received appropriate fluid resuscitation and FFP x 6 units Continue generous IV fluids. Avoid nephrotoxic medications as able; renally dosed where appropriate. Continue Dopamin gtt Nephrology consulted; discussed with Dr. Khan 01/11/20. Will trial IV furosemide x1; observe closely for improved UOP. Follow chemistries. (3) Dyspnea Qualifiers: Dyspnea type: unspecified Qualified Code(s): R06.00 - Dyspnea, unspecified Is this a current diagnosis for this admission?: Yes Plan: Worsened today Unclear etiology; multifactorial r/t Lung CA, pleural effusions, volume overload COVID pending D-dimer elevated, however, cannot have CTA due to acute renal failure. CT chest shows large loculated pleural effusions with emphysema changes and pulmonary fibrosis. Continue on antibiotics as above. Supplemental oxygen and CPAP (4) Hyperkalemia Is this a current diagnosis for this admission?: Yes Plan: Secondary to ARF Lactulose x 1 w/o improvement. EKG does not show peaked t-waves. Nursing reports high concern for dysphasia/aspiration. Report they have noted coughing following liquids; concerned about aspiration of Kayexalate. We will continue IV fluids as mentioned above. K decreased 6.0->5.7 w/ calcium gluconate, insulin, dextrose. Will repeat today. Nephrology consulted. Follow-up chemistries. (5) Leukocytosis Qualifiers: Leukocytosis type: unspecified Qualified Code(s): D72.829 - Elevated white blood cell count, unspecified Is this a current diagnosis for this admission?: Yes Plan: Trending up; WBC 14.4->17.2-> 19.9-> 24.4 Cultures and antibiotics as above. Now keeping in mind that the patient has been started on IV Decadron. Follow-up CBC. (6) Loculated pleural effusion Is this a current diagnosis for this admission?: Yes Plan: Despite p.o. and IV Vit K; and 6 units FFP, INR is unchanged. Now with elevated liver enzymes. Awaiting correction of PT/INR so that patient can undergo thoracentesis. (7) Paroxysmal atrial fibrillation Is this a current diagnosis for this admission?: Yes Plan: Continue home dose metoprolol and amiodarone. Eliquis on hold secondary to coagulopathy. Monitor on telemetry. (8) Chronic anticoagulation Is this a current diagnosis for this admission?: Yes Plan: Mixed coagulopathic. PT 40.4/INR 4.25. D-dimer 2.24. Discussed with Dr. Michele; patient needs thoracentesis and therefore will place on home dose Eliquis on hold. We will provide vitamin K and FFP with goal of INR <2 so that he will be robin ected well enough for the procedure. Follow up PT/INR/D-dimer (9) Full code status Is this a current diagnosis for this admission?: Yes (10) Prolonged QT interval Is this a current diagnosis for this admission?: Yes Plan: QTc on admission 393 -> 378-> 525-> 446 Recieved IV Magnesium 2 gm overnight for prevention/correction of prolonged QtC Medications reviewed and adjusted as appropriate. Monitor on telemetry. Daily EKG (11) Transaminitis Is this a current diagnosis for this admission?: Yes Plan: LFTs trending up. Secondary to # sepsis, hypotension, acute renal failure. T bili 2.2> 3.6 AST 87->749 ALT 83-> 779 Alk phos 186->161 Receiving fluid resuscitation and BP support. On IV decadron. Remaining management as above. (12) Increased anion gap metabolic acidosis Is this a current diagnosis for this admission?: Yes Plan: pH 7.15, pCO2 46.2, pO2 98.2, HcO3 15.8 Patient on BiPAP 14/6, FiO2 30% overnight; change to CPAP. Will consult with Endocrinology Teacher services. - Time Time Spent with patient: 35 or more minutes Anticipated Discharge Disposition: Unclear Anticipated Discharge Timeframe: >72 hrs
[2020-01-11] MEDS ORDERED: CALCIUM GLUCONATE 1000 MG/10 ML INJ IV ONE (10:30)
[2020-01-11] MEDS ORDERED: DEXTROSE 50%-WATER 25 GM/50 ML DISP.SYRIN IV ONE (10:30)
[2020-01-11] MEDS ORDERED: INSULIN REG, HUMAN 100 UNIT/ML 3 ML VIAL (PYX) IV ONE (10:30)
[2020-01-11] MEDS ORDERED: ACETAMINOPHEN 325 MG TABLET PO PRN (10:38)
[2020-01-11] MEDS: AMIODARONE HCL 200 MG TABLET PO SCH (10:49)
[2020-01-11] MEDS: DOCUSATE SODIUM 100 MG CAPSULE PO SCH ×2 (10:49→18:19)
[2020-01-11] MEDS: METOPROLOL SUCCINATE 50 MG TAB.SR.24H PO SCH (10:49)
[2020-01-11] MEDS: ASCORBIC ACID 500 MG TABLET PO SCH (10:50)
[2020-01-11] MEDS: CHOLECALCIFEROL (D3) 400 UNIT TABLET PO SCH (10:50)
[2020-01-11] MEDS: PANTOPRAZOLE SODIUM 40 MG VIAL IV SCH (10:58)
[2020-01-11] MEDS: FLUTICASONE/VILANTEROL 200-25 MCG/DOSE IH SCH (10:59)
--- NOTE | 2020-01-11 11:01 | PDOC CONSULTATION ---
Consultation Consult Date: 01/11/20 Provider Consulted: Estuardo ACKERMAN Consult reason:: Anuric BREANNE with hyperkalemia, metabolic acidosis in septic shock History of Present Illness Admission Date/PCP: 01/09/20 02:05 URIAH JONES MD History of Present Illness: PIETER MAYO is a 64 year old male with a past medical history of CHF, A. 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 Evaluations in the ER revealed that he had tenuous vital signs with his blood pressure being on the low side along with leukocytosis and pneumonia and acute renal failure. He was admitted pending COVID STATUS to the third floor. He is found sitting up to the chair on BiPAP. He struggling to breathe and having difficulty to talk. All his accessory muscles of respiration are working hard. Has got cyanosis of his peripheral extremities.Currently his blood pressure is being supported with dopamine at 3 mics per kilogram and barely holding. Discussed with Marysol Cardenas/hospitalist and is in the process of being transferred to the ICU for further management. He has had a blood gas done which shows a pH of 7.1 with a PCO2 of 46 and HCO3 of 15.Currently he is anuric. He specifically denies fever, palpitations, abdominal pain, nausea and vomiting. Discussed clinical status and POC w/ nursing . 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, Other - DVT/PE in 2017 Denies: Cataracts, Ears - Hearing aids Neurological Medical History: Denies: Hemorrhagic CVA, Ischemic CVA, Seizures Endocrine Medical History: Denies: Diabetes Mellitus Type 1, Diabetes Mellitus Type 2, Hyperthyroidism, Hypothyroidism Complications of Diabetes: Reports: None Renal/ Medical History: Denies: Nephrolithiasis Malignancy Medical History: Reports: Lung Cancer - Stage IV non-small cell carcinoma, Skin Cancer - Basal cell, Other - Malignant melanoma GI Medical History: Denies: Cirrhosis, Hepatitis Musculoskeltal Medical History: Denies: Arthritis, Fibromyalgia Skin Medical History: Denies: Eczema, Psoriasis Psychiatric Medical History: Denies: Alcohol Dependency, Depression, Substance Abuse, Tobacco Dependency Traumatic Medical History: Reports: None Infectious Medical History: Reports: None Past Surgical History Past Surgical History: Reports: Herniorrhaphy, Orthopedic Surgery, Vascular Surgery - Proximal right lower extremity, Other - Gamma knife, excision of melanoma, mediastinoscopy with biopsy Social History Lives with: Spouse/Significant other Smoking Status: Former Smoker Cigarettes Packs Per Day: 2 Electronic Cigarette use?: No Number of Years Smokin Last Time Smoked: 1999 Frequency of Alcohol Use: None Hx Recreational Drug Use: No Drugs: None Hx Prescription Drug Abuse: No - Advance Directive Resuscitation Status: Full Code Family History Parental Family History Reviewed: Yes - Negative for ESRD Children Family History Reviewed: No Sibling(s) Family History Reviewed.: No Medication/Allergy Home Medications: Torsemide [Demadex 20 mg Tablet] 40 mg PO DAILY #60 tablet 01/05/20 Alclometasone Dipropionate 1 applic TP BID 01/09/20 Amiodarone HCl [Cordarone 200 mg Tablet] 200 mg PO DAILY 01/09/20 Apixaban [Eliquis 5 mg Tablet] 5 mg PO BID 01/09/20 Budesonide/Formoterol Fumarate [Symbicort Hfa 160-4.5 Mcg Inhaler 6 gm] 1 puff IH Q12 01/09/20 Furosemide [Lasix 40 mg Tablet] 80 mg PO DAILY 01/09/20 Hydrochlorothiazide [Hydrodiuril 25 mg Tablet] 25 mg PO DAILY 01/09/20 Ketoconazole 1 applic TP BID 01/09/20 Lorazepam [Ativan 1 mg Tablet] 1 mg PO Q8HP PRN 01/09/20 Metoprolol Succinate [Toprol Xl 50 mg Tab.sr] 50 mg PO DAILY 01/09/20 Metronidazole 1 applic TP DAILY 01/09/20 Ondansetron HCl [Zofran 8 mg Tablet] 8 mg PO Q8HP PRN 01/09/20 Zolpidem Tartrate [Zolpidem Tartrate ER] 6.25 mg PO HSP PRN 01/09/20 Allergies/Adverse Reactions: No Known Allergies Allergy (Unverified 01/05/20 12:12) Review of Systems Constitutional: PRESENT: anorexia, fatigue, weakness, weight loss. ABSENT: chills, fever(s), headache(s), night sweats Nose, Mouth, and Throat: ABSENT: mouth pain, sore throat, vertigo Cardiovascular: PRESENT: dyspnea on exertion, edema, orthropnea, palpitations. ABSENT: chest pain Respiratory: PRESENT: dyspnea. ABSENT: cough, hemoptysis Gastrointestinal: ABSENT: abdominal pain, bloating, coffee ground emesis, diarrhea, dysphagia, heartburn Genitourinary: ABSENT: dysuria, hematuria Musculoskeletal: ABSENT: deformity, joint swelling Integumentary: ABSENT: lesions, pruritus, rash Neurological: ABSENT: abnormal speech, confusion, convulsions, focal weakness Hematologic/Lymphatic: ABSENT: easy bruising, lymphadenopathy Physical Exam Vital Signs: Temp Pulse Resp BP Pulse Ox 97.3 F 92 20 128/51 H 94 01/11/20 07:44 01/11/20 08:22 01/11/20 09:46 01/11/20 08:22 01/11/20 04:00 Intake & Output 01/10/20 01/11/20 01/12/20 06:59 06:59 06:59 Intake Total 5911 3766 300 Output Total 20 35 Balance 5891 3731 300 Weight 75.1 kg 75.1 kg General appearance: PRESENT: thin - Cachectic Exam: Patient currently on BiPAP and struggling to breathe with decompensating ABG. Eye exam: PRESENT: EOMI, PERRLA. ABSENT: scleral icterus Ear exam: PRESENT: normal external ear exam Mouth exam: PRESENT: neck supple. ABSENT: moist Neck exam: ABSENT: meningismus, tenderness, thyromegaly, tracheal deviation Respiratory exam: PRESENT: accessory muscle use, decreased breath sounds, prolonged expiratory phas, rales, rhonchi Cardiovascular exam: PRESENT: +S1, +S2 GI/Abdominal exam: PRESENT: normal bowel sounds, soft. ABSENT: organomegaly, tenderness Extremities exam: PRESENT: +2 edema Neurological exam: PRESENT: alert, altered, oriented to place Psychiatric exam: PRESENT: agitated Skin exam: ABSENT: erythema, mottled, petechiae, rash Results Laboratory Results: 01/11/20 05:04 01/11/20 08:47 01/09/20 01/10/20 01/10/20 19:45 04:50 16:23 WBC RBC Hgb Hct MCV MCH MCHC RDW Plt Count Carbonic Acid HCO3/H2CO3 Ratio ABG pH ABG pCO2 ABG pO2 ABG HCO3 ABG O2 Saturation ABG Base Excess FiO2 Sodium 133.0 L Potassium 6.0 H* Chloride 93 L Carbon Dioxide 24 Anion Gap 16 BUN 95 H Creatinine 3.87 H Est GFR ( Amer) 19 L Est GFR (Non-Af Amer) Glucose 129 H Lactic Acid Calcium 9.6 Total Bilirubin AST Alkaline Phosphatase Total Protein Albumin Free T4 1.64 Free T3 pg/mL 1.40 L Blood Type B POSITIVE Antibody Screen NEGATIVE 01/11/20 01/11/20 01/11/20 05:04 05:04 05:04 WBC 24.4 H RBC 6.04 H Hgb 15.6 Hct 50.7 MCV 84 MCH 25.9 L MCHC 30.9 L RDW 16.4 H Plt Count 320 Carbonic Acid HCO3/H2CO3 Ratio ABG pH ABG pCO2 ABG pO2 ABG HCO3 ABG O2 Saturation ABG Base Excess FiO2 Sodium Cancelled Potassium Cancelled Chloride Cancelled Carbon Dioxide Cancelled Anion Gap Cancelled BUN Cancelled Creatinine Cancelled Est GFR ( Amer) Cancelled Est GFR (Non-Af Amer) Cancelled Glucose Cancelled Lactic Acid 5.5 H Calcium Cancelled Total Bilirubin Cancelled AST Cancelled Alkaline Phosphatase Cancelled Total Protein Cancelled Albumin Cancelled Free T4 Free T3 pg/mL Blood Type Antibody Screen 01/11/20 01/11/20 01/11/20 08:47 08:47 09:30 WBC RBC Hgb Hct MCV MCH MCHC RDW Plt Count Carbonic Acid 1.39 H HCO3/H2CO3 Ratio 11:1 ABG pH 7.15 L* ABG pCO2 46.2 H ABG pO2 98.2 ABG HCO3 15.8 L ABG O2 Saturation 95.5 ABG Base Excess -12.9 FiO2 50% Sodium 133.5 L Potassium 5.7 H Chloride 92 L Carbon Dioxide 22 Anion Gap 20 H BUN 98 H Creatinine 4.50 H Est GFR ( Amer) 16 L Est GFR (Non-Af Amer) Glucose 132 H Lactic Acid 6.6 H Calcium 9.3 Total Bilirubin 3.6 H AST 749 H Alkaline Phosphatase 161 H Total Protein 8.7 H Albumin 4.7 Free T4 Free T3 pg/mL Blood Type Antibody Screen 01/08/20 01/09/20 01/10/20 18:04 11:09 04:50 Creatine Kinase 41 L Troponin I 0.014 NT-Pro-B Natriuret Pep 3000 H 01/11/20 08:47 Creatine Kinase Troponin I 0.128 NT-Pro-B Natriuret Pep Impressions: Chest CT 01/09/20 00:00 IMPRESSION: NO SIGNIFICANT CHANGE. LARGE LOCULATED PLEURAL EFFUSIONS, EMPHYSEMATOUS CHANGES WITH PULMONARY FIBROSIS, AND ADENOPATHY ARE UNCHANGED. Renal Ultrasound 01/10/20 00:00 IMPRESSION: Unremarkable renal sonogram. No evidence of hydronephrosis to suggest obstruction as the cause of the patient's renal dysfunction. Chest X-Ray 01/11/20 00:00 IMPRESSION: STABLE APPEARANCE OF THE CHEST. SUPPORT DEVICES UNCHANGED. Assessment & Plan - Diagnosis (1) Septic shock Plan: Patient being admitted with pneumonia and septic shock in anuric BREANNE. Covis is still pending. Currently on pressors and multiple antibiotics. He has suddenly developed severe transaminitis indicative of worsening septic shock in all pro bability. Has high PT/INR and d-dimer again indicative of worsening septic shock. Very critical in the background of stage IV lung cancer with metastasis. (2) Acute kidney failure Qualifiers: Acute renal failure type: unspecified Qualified Code(s): N17.9 - Acute kidney failure, unspecified Is this a current diagnosis for this admission?: Yes Plan: Anuric in the setting of septic shock/pneumonia/stage IV lung cancer. However patient and wants everything done including dialysis. I discussed the procedure and its complications including rare cases of hypotension and cardiac arrest to the patient as well as his who understands and consented to initiation of hemodialysis. Please dose medications to a GFR of less than 20 cc/min. I also discussed the case with Marysol Cardenas/hospitalist to get the surgeons for temporary dialysis catheter placement and I will initiate hemodialysis tomorrow. Its also quite possible that if the patient deteriorates into further severe septic shock he will need CRRT which is not available in this hospital and will require to be transferred to a tertiary center. (3) Hyperkalemia Is this a current diagnosis for this admission?: Yes Plan: Recommend treating currently with SPS and will respond to initiation of hemodialysis. (4) Increased anion gap metabolic acidosis Is this a current diagnosis for this admission?: Yes Plan: Recommend initiation with bicarb drip followed by dialysis tomorrow. (5) Loculated pleural effusion Is this a current diagnosis for this admission?: Yes Plan: Most likely parapneumonic. Management as per hospitalist/registrar college or university. (6) Lung cancer metastatic to brain Is this a current diagnosis for this admission?: Yes Plan: Stage IV lung cancer with brain metastasis. Unfortunately patient has also got pulmonary fibrosis most likely from long-term usage of amiodarone which has led him to have severe restrictive lung disease as well. (7) Paroxysmal atrial fibrillation Is this a current diagnosis for this admission?: Yes Plan: On amiodarone and was on Eliquis. Pulmonary fibrosis that has been detected on the CT scan most likely secondary to long-term usage of amiodarone.
[2020-01-11] MEDS ORDERED: PIPERACILLIN SODIUM/TAZOBACTAM 3.375 GM in NORMAL SALINE 100 ML IV SCH (12:00)
[2020-01-11] MEDS: PIPERACILLIN SODIUM/TAZOBACTAM 2.25 GM in NORMAL SALINE 50 ML IV SCH ×2 (14:42→21:02)
--- NOTE | 2020-01-11 15:13 | EKG REPORT ---
SEVERITY:- ABNORMAL ECG - SINUS OR ECTOPIC ATRIAL RHYTHM FIRST DEGREE AV BLOCK LOW VOLTAGE THROUGHOUT CONSIDER ANTEROSEPTAL INFARCT NONSPECIFIC T ABNORMALITIES, DIFFUSE LEADS : Confirmed by: Wojciech Long MD 11-Jan-2020 15:13:06
--- NOTE | 2020-01-11 15:14 | EKG REPORT ---
SEVERITY:- ABNORMAL ECG - SINUS RHYTHM FIRST DEGREE AV BLOCK PROBABLE ANTEROSEPTAL INFARCT, AGE INDETERM BORDERLINE T ABNORMALITIES, INFERIOR LEADS LATERAL LEADS ARE ALSO INVOLVED : Confirmed by: Wojciech Long MD 11-Jan-2020 15:13:58
--- NOTE | 2020-01-11 15:14 | EKG REPORT ---
SEVERITY:- ABNORMAL ECG - SINUS OR ECTOPIC ATRIAL RHYTHM LOW VOLTAGE THROUGHOUT CONSIDER ANTEROSEPTAL INFARCT BORDERLINE T ABNORMALITIES, INFERIOR LEADS PROLONGED QT INTERVAL : Confirmed by: Wojciech Long MD 11-Jan-2020 15:13:14
[2020-01-11] MEDS ORDERED: SODIUM BICARBONATE 8.4% INJ 50 MEQ/50 ML DISP.SYRIN ONE (15:55)
[2020-01-11 16:09] LABS: ARTERIAL BLOOD BASE EXCESS -12.1 mmol/L; ARTERIAL BLOOD HCO3 16.4 mmol/L (20-24); ARTERIAL BLOOD O2 SATURATION 93.5 % (94-98); ARTERIAL BLOOD PCO2 46.6 mmHg (35-45); ARTERIAL BLOOD PO2 84.4 mmHg (80-100); ARTERIAL BLOOD TOTAL CO2 17.9 mmol/L (23-27)
[2020-01-11 16:11] LABS: ARTERIAL BLOOD FIO2 50%
[2020-01-11 16:13] LABS: ARTERIAL BLOOD PH 7.17 (7.35-7.45)
[2020-01-11] MEDS ORDERED: ALBUTEROL SULFATE 0.083% NEB 2.5 MG/3 ML AMPUL NEB PRN (16:29)
[2020-01-11] MEDS ORDERED: IPRATROPIUM/ALBUTEROL 0.5-2.5 MG/3 ML AMPUL NEB ONE (17:22)
[2020-01-11] MEDS: IPRATROPIUM/ALBUTEROL 0.5-2.5 MG/3 ML AMPUL NEB SCH ×2 (17:23→19:55)
--- NOTE | 2020-01-11 17:48 | CRITICAL CARE ADMISSION REPORT ---
HPI Date:: 01/11/20 Time:: 15:01 Reason for ICU Reason:: Hypotension/shock, lactic acidosis Admission Date/Time & PCP: Admission Date/Time: 01/09/20 02:05 Primary Care Provider: URIAH JONES MD HPI: This 64-year-old male reformed smoker is seen in consultation at the request of Marysol Hart NP for recommendations on further evaluation and management of shock and lactic acidosis. At the time of clinical interview, the patient is BiPAP dependent (BiPAP 14/6, FiO2 50%) and is on dopamine infusion for blood pressure support. The patient was admitted on 01/08/2020 after presenting to the emergency department with complaints of progressively worsening dyspnea over the past 10 days. He reported exertional dyspnea, orthopnea and a cough productive of clear mucus secretions. He did endorse fever and chills, along with generalized weakness, dizziness and anorexia. COVID-19 test is pending. He was initially admitted as a PUI to the third floor. Request for transfer was submitted when the patient required dopamine infusion for blood pressure support. Most recent ABG: pH 7.15, PCO2 46, PO2 98 on BiPAP. He is being followed by the nephrology service and is anticipating hemodialysis for acute kidney injury. His presenting creatinine was 1.34 and is now 4.50. He is oliguric. PIETER MAYO is a 64 year old male with a past medical history of CHF, A. 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 Evaluations in the ER revealed that he had tenuous vital signs with his blood pressure being on the low side along with leukocytosis and pneumonia and acute renal failure. He was admitted pending COVID STATUS to the third floor. He is found sitting up to the chair on BiPAP. He struggling to breathe and having difficulty to talk. All his accessory muscles of respiration are working hard. Has got cyanosis of his peripheral extremities.Currently his blood pressure is being supported with dopamine at 3 mics per kilogram and barely holding. Discussed with Marysol Cardenas/hospitalist and is in the process of being transferred to the ICU for further management. He has had a blood gas done which shows a pH of 7.1 with a PCO2 of 46 and HCO3 of 15.Currently he is anuric. He specifically denies fever, palpitations, abdominal pain, nausea and vomiting. Discussed clinical status and POC w/ nursing . History obtained from:: Patient, discussion with Marysol Cardenas NP - Diagnosis/Plan (1) Acute hypoxemic respiratory failure Is this a current diagnosis for this admission?: Yes Plan: Check ABG. Titrate ventilatory support based on ABG settings. Diuresis. Plans for HD noted. (2) Shock Is this a current diagnosis for this admission?: Yes Plan: Wean dopamine as tolerated. On empiric cefepime/Zosyn/linezolid. Stop cefepime. (3) Lactic acidosis Is this a current diagnosis for this admission?: Yes Plan: Follow serial lactates. (4) Acute kidney failure Qualifiers: Acute renal failure type: unspecified Qualified Code(s): N17.9 - Acute kidney failure, unspecified Is this a current diagnosis for this admission?: Yes Plan: For HD catheter placement noted. (5) Acute decompensated heart failure Is this a current diagnosis for this admission?: Yes Plan: Diuresis. Elevated proBNP. LVEF 55-60% (2D echo 01/05/2020) with elevated right-sided pressures suggested on echo. Home regimen: Demadex 40 mg p.o. daily, hydrochlorothiazide 25 mg p.o. daily, Lasix 80 mg p.o. daily, Toprol-XL 50 mg p.o. daily. (6) Hyperkalemia Is this a current diagnosis for this admission?: Yes (7) Increased anion gap metabolic acidosis Is this a current diagnosis for this admission?: Yes (8) Loculated pleural effusion Is this a current diagnosis for this admission?: Yes (9) Lung cancer metastatic to brain Is this a current diagnosis for this admission?: Yes Plan: Right hilar mass with bulky lymphadenopathy with anecdotal history of metastases to the brain. (10) Paroxysmal atrial fibrillation Is this a current diagnosis for this admission?: Yes Plan: On amiodarone, Toprol-XL. Home regimen includes Eliquis, amiodarone 200 mg p.o. daily, Toprol-XL 50 mg p.o. daily. (11) Transaminitis Is this a current diagnosis for this admission?: Yes (12) Lower extremity edema Is this a current diagnosis for this admission?: Yes (13) Emphysema lung Qualifiers: Emphysema type: unspecified Qualified Code(s): J43.9 - Emphysema, unspecified Is this a current diagnosis for this admission?: Yes Plan: On Symbicort 160/4.5 HFA 1 puff twice daily at home. Start DuoNeb/Pulmicort. (14) Bilateral pleural effusion Is this a current diagnosis for this admission?: Yes (15) Pulmonary fibrosis, unspecified Is this a current diagnosis for this admission?: Yes Plan: quite possibly due to amiodarone induced pulmonary toxicity. 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, Other - DVT/PE in 2017 Denies: Cataracts, Ears - Hearing aids Neurological Medical History: Denies: Hemorrhagic CVA, Ischemic CVA, Seizures Endocrine Medical History: Denies: Diabetes Mellitus Type 1, Diabetes Mellitus Type 2, Hyperthyroidism, Hypothyroidism Renal/ Medical History: Denies: Chronic Kidney Disease, Nephrolithiasis Malignancy Medical History: Reports: Lung Cancer - Stage IV non-small cell c arcinoma, Skin Cancer - Basal cell, Other - Malignant melanoma GI Medical History: Denies: Cirrhosis, Hepatitis Musculoskeltal Medical History: Denies: Arthritis, Fibromyalgia Skin Medical History: Denies: Eczema, Psoriasis Psychiatric Medical History: Denies: Alcohol Dependency, Depression, Substance Abuse, Tobacco Dependency Traumatic Medical History: Reports: None Hematology: Reports: Other - DVT/PE in 2017 Denies: Anemia, Bleeding Tendencies Infectious Medical History: Reports: None Past Surgical History Past Surgical History: Reports: Herniorrhaphy, Orthopedic Surgery, Vascular Surgery - Proximal right lower extremity, Other - Gamma knife, excision of melanoma, mediastinoscopy with biopsy Social/Family History - Social History Lives with: Spouse/Significant other Smoking Status: Former Smoker Cigarettes Packs Per Day: 2 Number of Years Smokin Last Time Smoked: 1999 Frequency of Alcohol Use: None Hx Recreational Drug Use: No Drugs: None Hx Prescription Drug Abuse: No - Medication/Allergies Home Medications: Torsemide [Demadex 20 mg Tablet] 40 mg PO DAILY #60 tablet 01/05/20 Alclometasone Dipropionate 1 applic TP BID 01/09/20 Amiodarone HCl [Cordarone 200 mg Tablet] 200 mg PO DAILY 01/09/20 Apixaban [Eliquis 5 mg Tablet] 5 mg PO BID 01/09/20 Budesonide/Formoterol Fumarate [Symbicort Hfa 160-4.5 Mcg Inhaler 6 gm] 1 puff IH Q12 01/09/20 Furosemide [Lasix 40 mg Tablet] 80 mg PO DAILY 01/09/20 Hydrochlorothiazide [Hydrodiuril 25 mg Tablet] 25 mg PO DAILY 01/09/20 Ketoconazole 1 applic TP BID 01/09/20 Lorazepam [Ativan 1 mg Tablet] 1 mg PO Q8HP PRN 01/09/20 Metoprolol Succinate [Toprol Xl 50 mg Tab.sr] 50 mg PO DAILY 01/09/20 Metronidazole 1 applic TP DAILY 01/09/20 Ondansetron HCl [Zofran 8 mg Tablet] 8 mg PO Q8HP PRN 01/09/20 Zolpidem Tartrate [Zolpidem Tartrate ER] 6.25 mg PO HSP PRN 01/09/20 Allergies/Adverse Reactions: No Known Allergies Allergy (Unverified 01/05/20 12:12) Review of Systems Constitutional: PRESENT: anorexia, fatigue, weight loss. ABSENT: fever(s), night sweats Cardiovascular: PRESENT: dyspnea on exertion, edema, orthropnea. ABSENT: chest pain Respiratory: PRESENT: cough, dyspnea, sputum. ABSENT: hemoptysis Gastrointestinal: ABSENT: abdominal pain, bloating, coffee ground emesis, constipation, diarrhea, dysphagia, heartburn, melena, nausea, vomiting Genitourinary: ABSENT: difficulty urinating, dysuria, hematuria Neurological: PRESENT: dizziness. ABSENT: abnormal speech, confusion, con vulsions, focal weakness, frequent falls Psychiatric: ABSENT: anxiety, depression, hallucinations Endocrine: ABSENT: cold intolerance, flushing, heat intolerance, polydipsia, polyphagia, polyuria Hematologic/Lymphatic: PRESENT: other - Stage IV lung cancer Physical Exam Vital Signs: Temp Pulse Resp BP Pulse Ox 97.3 F 90 19 99/60 L 94 01/11/20 10:43 01/11/20 11:03 01/11/20 10:43 01/11/20 11:03 01/11/20 04:00 Intake & Output 01/10/20 01/11/20 01/12/20 06:59 06:59 06:59 Intake Total 5911 3766 300 Output Total 20 35 Balance 5891 3731 300 Weight 75.1 kg 75.1 kg Weight/Height Weight 75.1 kg Height 1.85 m General appearance: PRESENT: no acute distress, thin, other - Acutely ill in appearance; cachectic. On BiPAP Head exam: PRESENT: atraumatic, normocephalic Eye exam: PRESENT: conjunctiva pink, EOMI, PERRLA. ABSENT: scleral icterus Mouth exam: PRESENT: moist, tongue midline Neck exam: ABSENT: carotid bruit, JVD, lymphadenopathy, thyromegaly Respiratory exam: PRESENT: crackles - Bilateral lower lung predominant, decreased breath sounds. ABSENT: prolonged expiratory phas, rales, rhonchi, wheezes Cardiovascular exam: PRESENT: RRR. ABSENT: diastolic murmur, rubs, systolic murmur Pulses: PRESENT: normal carotid pulses. ABSENT: normal radial pulses GI/Abdominal exam: PRESENT: normal bowel sounds, soft. ABSENT: distended, guarding, mass, organolmegaly, rebound, tenderness Extremities exam: PRESENT: full ROM, pedal edema. ABSENT: calf tenderness, clubbing Musculoskeletal exam: PRESENT: normal inspection. ABSENT: deformity Neurological exam: PRESENT: alert, awake, oriented to person, oriented to place, oriented to time, oriented to situation, CN II-XII grossly intact. ABSENT: motor sensory deficit Psychiatric exam: PRESENT: anxious. ABSENT: agitated Skin exam: PRESENT: dry, intact, warm. ABSENT: cyanosis, rash Tubes/Lines: PRESENT: Other - Left-sided port Laboratory/Radiographs Laboratory Results: 01/11/20 05:04 01/11/20 08:47 01/09/20 01/10/20 01/10/20 19:45 04:50 16:23 WBC RBC Hgb Hct MCV MCH MCHC RDW Plt Count Carbonic Acid HCO3/H2CO3 Ratio ABG pH ABG pCO2 ABG pO2 ABG HCO3 ABG O2 Saturation ABG Base Excess FiO2 Sodium 133.0 L Potassium 6.0 H* Chloride 93 L Carbon Dioxide 24 Anion Gap 16 BUN 95 H Creatinine 3.87 H Est GFR ( Amer) 19 L Est GFR (Non-Af Amer) Glucose 129 H Lactic Acid Calcium 9.6 Total Bilirubin AST Alkaline Phosphatase Total Protein Albumin Free T4 1.64 Free T3 pg/mL 1.40 L Blood Type B POSITIVE Antibody Screen NEGATIVE 01/11/20 01/11/20 01/11/20 05:04 05:04 05:04 WBC 24.4 H RBC 6.04 H Hgb 15.6 Hct 50.7 MCV 84 MCH 25.9 L MCHC 30.9 L RDW 16.4 H Plt Count 320 Carbonic Acid HCO3/H2CO3 Ratio ABG pH ABG pCO2 ABG pO2 ABG HCO3 ABG O2 Saturation ABG Base Excess FiO2 Sodium Cancelled Potassium Cancelled Chloride Cancelled Carbon Dioxide Cancelled Anion Gap Cancelled BUN Cancelled Creatinine Cancelled Est GFR ( Amer) Cancelled Est GFR (Non-Af Amer) Cancelled Glucose Cancelled Lactic Acid 5.5 H Calcium Cancelled Total Bilirubin Cancelled AST Cancelled Alkaline Phosphatase Cancelled Total Protein Cancelled Albumin Cancelled Free T4 Free T3 pg/mL Blood Type Antibody Screen 01/11/20 01/11/20 01/11/20 08:47 08:47 09:30 WBC RBC Hgb Hct MCV MCH MCHC RDW Plt Count Carbonic Acid 1.39 H HCO3/H2CO3 Ratio 11:1 ABG pH 7.15 L* ABG pCO2 46.2 H ABG pO2 98.2 ABG HCO3 15.8 L ABG O2 Saturation 95.5 ABG Base Excess -12.9 FiO2 50% Sodium 133.5 L Potassium 5.7 H Chloride 92 L Carbon Dioxide 22 Anion Gap 20 H BUN 98 H Creatinine 4.50 H Est GFR ( Amer) 16 L Est GFR (Non-Af Amer) Glucose 132 H Lactic Acid 6.6 H Calcium 9.3 Total Bilirubin 3.6 H AST 749 H Alkaline Phosphatase 161 H Total Protein 8.7 H Albumin 4.7 Free T4 Free T3 pg/mL Blood Type Antibody Screen 01/11/20 12:43 WBC RBC Hgb Hct MCV MCH MCHC RDW Plt Count Carbonic Acid HCO3/H2CO3 Ratio ABG pH ABG pCO2 ABG pO2 ABG HCO3 ABG O2 Saturation ABG Base Excess FiO2 Sodium Potassium Chloride Carbon Dioxide Anion Gap BUN Creatinine Est GFR ( Amer) Est GFR (Non-Af Amer) Glucose Lactic Acid 7.2 H Calcium Total Bilirubin AST Alkaline Phosphatase Total Protein Albumin Free T4 Free T3 pg/mL Blood Type Antibody Screen 01/08/20 01/09/20 01/10/20 18:04 11:09 04:50 Creatine Kinase 41 L Troponin I 0.014 NT-Pro-B Natriuret Pep 3000 H 01/11/20 08:47 Creatine Kinase Troponin I 0.128 NT-Pro-B Natriuret Pep Impressions: Chest CT 01/09/20 00:00 IMPRESSION: NO SIGNIFICANT CHANGE. LARGE LOCULATED PLEURAL EFFUSIONS, EMPHYSEMATOUS CHANGES WITH PULMONARY FIBROSIS, AND ADENOPATHY ARE UNCHANGED. Renal Ultrasound 01/10/20 00:00 IMPRESSION: Unremarkable renal sonogram. No evidence of hydronephrosis to suggest obstruction as the cause of the patient's renal dysfunction. Chest X-Ray 01/11/20 00:00 IMPRESSION: STABLE APPEARANCE OF THE CHEST. SUPPORT DEVICES UNCHANGED. All labs, radiographs, diagnostic studies and EKGs were personally reviewed: Yes In addition, reports of radiographic and diagnostic studies were read: Yes Critical Time Critical Time (minutes): 60 -: The care of a critically ill patient is dynamic. This note represents a static moment in the admission process. Orders and treatments may be given simultaneously and urgently, and time is not business banking representative of the treatment process. This patient requires Critical Care secondary to life threatening organ or limb dysfunction. Without Critical Care services, the patient is at risk for increased mortality and morbidity.
[2020-01-11] MEDS ORDERED: APIXABAN 5 MG TABLET PO SCH (18:00)
--- NOTE | 2020-01-11 18:07 | Operative Report ---
Nonrecallable Operative Report DATE OF SURGERY: 01/11/20 PREOPERATIVE DIAGNOSIS: Renal failure POSTOPERATIVE DIAGNOSIS: Same as above OPERATION: 1. Ultrasound-guided central venous puncture. 2. Left femoral temporary dialysis catheter placement SURGEON: MARIBEL ERICKSON ANESTHESIA: Local TISSUE REMOVED OR ALTERED: None COMPLICATIONS: None apparent ESTIMATED BLOOD LOSS: Minimal PROCEDURE: Drains/implants: 30 cm temporary dialysis catheter. Procedure in detail: After informed consent was obtained, the patient was sat in the semi-upright position in the ICU. The area of the left groin was prepped and draped in a normal sterile fashion. An ultrasound was used to identify the left femoral vein. It was compressible with normal flow. Under direct ultrasonic guidance, the supplied access needle was used to cannulate the left femoral vein. Dark venous nonpulsatile blood was returned in the syringe. The wire was inserted into the vein easily. The wire was confirmed to be within the lumen of the vein using the ultrasound device. Picture documentation was obtained. The catheter was then slid over the wire using a modified Seldinger technique. The catheter was then aspirated and flushed x3 without difficulty. The catheter returned dark venous, nonpulsatile blood. A dressing was placed, and the procedure was concluded. All sponge, instrument, and needle counts were correct. Condition: Fair.
[2020-01-11] MEDS: FUROSEMIDE INJ/PF 40 MG/4 ML SDV IV PRN ×2 (18:19→20:50)
[2020-01-11] MEDS ORDERED: DEXMEDETOMIDINE IN 0.9 % NACL 400 MCG/100 ML RTUPB IV ONE (19:20)
[2020-01-11] MEDS ORDERED: DEXMEDETOMIDINE IN 0.9 % NACL 400 MCG/100 ML RTUPB IV PRN (19:21)
[2020-01-11] MEDS: BUDESONIDE NEB 0.25 MG/2 ML AMPUL NEB SCH (19:55)
[2020-01-11] MEDS: DEXTROSE 5%-WATER 1000 ML 1,000 ML with SODIUM BICARBONATE 150 MEQ IV PRN ×2 (21:01)
[2020-01-11] MEDS: METHYLPREDNISOLONE INJ 40 MG/1 ML SDV IV SCH (21:03)
--- NOTE | 2020-01-11 22:43 | Progress Note ---
Provider Note Provider Note: [facility] ID Telephone Advice Consultation Chart reviewed. Patient is a 64-year-old man with very complicated history of non-small cell lung cancer with brain metastasis s/p Gamma knife in 2017, more recently on afatinib, history of melanoma, A fib, CHF, COPD/emphysema. He was admitted on 01/07 due to worsening shortness of breath for the past 10 days prior to admission. He recently moved from [place]. He received diuretics without improvement. On admission, he was found on septic shock requiring dopamine. He had leukocytosis of 14 now worsened to 24k. Acute kidney injury with creatinine of 3.6 now anuric and creatinine of 4.5 with BUN 98, already evaluated by nephrology to start HD. CXR demonstrated vascular congestion and pleural effusions, but CT chest showed loculated pleural effusions. He was supposed to have thoracentesis vs VIR drainage but he was not stable for the procedure and was also on anticoagulation. He has been on zyvox and cefepime, zosyn added. ID consulted for recommendations. Allergies: No Known Allergies Allergy (Unverified 01/05/20 12:12) Medications: Alclometasone Dipropionate 1 applic TP BID 01/09/20 Amiodarone HCl [Cordarone 200 mg Tablet] 200 mg PO DAILY 01/09/20 Apixaban [Eliquis 5 mg Tablet] 5 mg PO BID 01/09/20 Budesonide/Formoterol Fumarate [Symbicort Hfa 160-4.5 Mcg Inhaler 6 gm] 1 puff IH Q12 01/09/20 Furosemide [Lasix 40 mg Tablet] 80 mg PO DAILY 01/09/20 Hydrochlorothiazide [Hydrodiuril 25 mg Tablet] 25 mg PO DAILY 01/09/20 Ketoconazole 1 applic TP BID 01/09/20 Lorazepam [Ativan 1 mg Tablet] 1 mg PO Q8HP PRN 01/09/20 Metoprolol Succinate [Toprol Xl 50 mg Tab.sr] 50 mg PO DAILY 01/09/20 Metronidazole 1 applic TP DAILY 01/09/20 Ondansetron HCl [Zofran 8 mg Tablet] 8 mg PO Q8HP PRN 01/09/20 Zolpidem Tartrate [Zolpidem Tartrate ER] 6.25 mg PO HSP PRN 01/09/20 Vital Signs: Temp Pulse Resp BP Pulse Ox 97 F L 75 23 H 92/71 L 94 01/11/20 14:00 01/11/20 19:58 01/11/20 19:58 01/11/20 19:04 01/11/20 19:58 Intake & Output 01/10/20 01/11/20 01/12/20 06:59 06:59 06:59 Intake Total 5911 3766 679 Output Total 20 35 15 Balance 5891 3738 664 Weight 75.1 kg 75.1 kg Weight/Height Weight 75.1 kg Height 6 ft 1 in Laboratories: 01/11/20 05:04 01/11/20 08:47 MCV 84 fl (80-97) 01/11/20 05:04 MCH 25.9 pg (27.0-33.4) L 01/11/20 05:04 MCHC 30.9 g/dL (32.0-36.0) L 01/11/20 05:04 RDW 16.4 % (11.5-14.0) H 01/11/20 05:04 Seg Neutrophils % Not Reportable 01/09/20 10:20 Carbonic Acid 1.40 mmol/L (1.05-1.35) H 01/11/20 15:55 HCO3/H2CO3 Ratio 11:1 01/11/20 15:55 ABG pH 7.17 (7.35-7.45) L* 01/11/20 15:55 ABG pCO2 46.6 mmHg (35-45) H 01/11/20 15:55 ABG pO2 84.4 mmHg (80-100) 01/11/20 15:55 ABG HCO3 16.4 mmol/L (20-24) L 01/11/20 15:55 ABG O2 Saturation 93.5 % (94-98) L 01/11/20 15:55 ABG Base Excess -12.1 mmol/L 01/11/20 15:55 FiO2 50% 01/11/20 15:55 Chloride 92 mmol/L (98-107) L 01/11/20 08:47 Carbon Dioxide 22 mmol/L (22-30) 01/11/20 08:47 Anion Gap 20 (5-19) H 01/11/20 08:47 Est GFR ( Amer) 16 (>60) L 01/11/20 08:47 Est GFR (Non-Af Amer) Cancelled 01/11/20 05:04 Glucose 132 mg/dL (75-110) H 01/11/20 08:47 Lactic Acid 7.2 mmol/L (0.7-2.1) H 01/11/20 12:43 Calcium 9.3 mg/dL (8.4-10.2) 01/11/20 08:47 Magnesium 2.3 mg/dL (1.6-2.3) 01/10/20 04:50 Total Bilirubin 3.6 mg/dL (0.2-1.3) H 01/11/20 08:47 AST 749 U/L (17-59) H 01/11/20 08:47 Alkaline Phosphatase 161 U/L (38-126) H 01/11/20 08:47 C-Reactive Protein 40.6 mg/L (<10.0) H 01/09/20 10:20 Total Protein 8.7 g/dL (6.3-8.2) H 01/11/20 08:47 Albumin 4.7 g/dL (3.5-5.0) 01/11/20 08:47 Triglycerides 109 mg/dL (<150) 01/10/20 04:50 Cholesterol 111.29 mg/dL (0-200) 01/10/20 04:50 LDL Cholesterol Direct 63 mg/dL (<100) 01/10/20 04:50 VLDL Cholesterol 22.0 mg/dL (10-31) 01/10/20 04:50 HDL Cholesterol 27 mg/dL (>40) L 01/10/20 04:50 TSH 6.72 uIU/mL (0.47-4.68) H 01/10/20 04:50 Free T4 1.64 ng/dL (0.78-2.19) 01/10/20 04:50 Free T3 pg/mL 1.40 pg/mL (2.77-5.27) L 01/10/20 04:50 Urine Color SABA 01/10/20 06:20 Urine Appearance TURBID 01/10/20 06:20 Urine pH 5.0 (5.0-9.0) 01/10/20 06:20 Ur Specific [place] 1.025 01/10/20 06:20 Urine Protein 100 mg/dL (NEGATIVE) H 01/10/20 06:20 Urine Glucose (UA) 50 mg/dL (NEGATIVE) H 01/10/20 06:20 Urine Ketones TRACE mg/dL (NEGATIVE) H 01/10/20 06:20 Urine Blood LARGE (NEGATIVE) H 01/10/20 06:20 Urine RBC (Auto) >182 /HPF 01/10/20 06:20 Blood Type B POSITIVE 01/09/20 19:45 Antibody Screen NEGATIVE 01/09/20 19:45 01/08/20 01/09/20 01/10/20 18:04 11:09 04:50 Creatine Kinase 41 L Troponin I 0.014 NT-Pro-B Natriuret Pep 3000 H 01/11/20 08:47 Creatine Kinase Troponin I 0.128 NT-Pro-B Natriuret Pep Microbiology: Blood cultures 01/08 [facility] Radiology: Chest CT 01/09/20 00:00 IMPRESSION: NO SIGNIFICANT CHANGE. LARGE LOCULATED PLEURAL EFFUSIONS, EMPHYSEMATOUS CHANGES WITH PULMONARY FIBROSIS, AND ADENOPATHY ARE UNCHANGED. Renal Ultrasound 01/10/20 00:00 IMPRESSION: Unremarkable renal sonogram. No evidence of hydronephrosis to suggest obstruction as the cause of the patient's renal dysfunction. Chest X-Ray 01/11/20 00:00 IMPRESSION: STABLE APPEARANCE OF THE CHEST. SUPPORT DEVICES UNCHANGED. Assessment and Recommendations: Patient evaluated due to bilateral loculated pleural effusions in the setting of lung cancer. Patient is in septic shock and also renal failure requiring HD, heart failure with BNP above 3,000. He might not be stable for thoracentesis, but this is recommended as soon as it is safe for source/sepsis control. In the meantime, in terms of antibiotics, zyvoz is adequate for now for MRSA coverage, zosyn (renally adjusted) is adequate for GNR and anaerobes, but will recommend to discontinue cefepime as there is no indication for double beta lactam therapy as mechanism of resistance is the same. Will recommend adding doxycycline 100 mg bid for atypical organisms like Mycoplasma, Legionella, Chlamydia, etc. Can consider urine legionella antigen, Mycoplasma titers. When drainage is possible, please send fluid for aerobic, anaerobic, AFB and fungal cultures and to pathology for cytology as well. Cell count, LDH, protein, pH, etc. Duration of therapy will depend on source control and cultures. Melany Hendrickson MD [facility] ID [id number]
[2020-01-12] MEDS ORDERED: LORAZEPAM INJ 2 MG/1 ML VIAL IV ONE (02:00)
[2020-01-12] MEDS: IPRATROPIUM/ALBUTEROL 0.5-2.5 MG/3 ML AMPUL NEB SCH ×2 (02:43→08:20)
[2020-01-12] MEDS ORDERED: FENTANYL CITRATE INJ/PF 100 MCG/2 ML AMPUL ONE (03:43)
[2020-01-12] MEDS ORDERED: FENTANYL CITRATE INJ/PF 100 MCG/2 ML AMPUL IV ONE (04:00)
[2020-01-12 04:35] LABS: ALBUMIN 3.9 g/dL (3.5-5.0); ALKALINE PHOSPHATASE 127 U/L (38-126); BILIRUBIN,DIRECT 2.3 mg/dL (0.0-0.4); BILIRUBIN,TOTAL 3.7 mg/dL (0.2-1.3); BLOOD UREA NITROGEN 98 mg/dL (7-20); CALCIUM 8.4 mg/dL (8.4-10.2); CHLORIDE 92 mmol/L (98-107); GLUCOSE 144 mg/dL (75-110); POTASSIUM 5.8 mmol/L (3.6-5.0)
[2020-01-12] MEDS: DOPAMINE HCL/DEXTROSE 5%-WATER 800 MG/250 ML RTUINJ IV PRN (04:36)
[2020-01-12 04:40] LABS: CARBON DIOXIDE 20 mmol/L (22-30)
[2020-01-12 04:45] LABS: ANION GAP 20 (5-19)
[2020-01-12 04:53] LABS: ASPARTATE AMINO TRANSFERASE 1625 U/L (17-59)
[2020-01-12 04:55] LABS: HEMATOCRIT 48.3 % (37.9-51.0); HEMOGLOBIN 14.8 g/dL (13.5-17.0); MEAN CORPUSCULAR HEMOGLOBIN 25.9 pg (27.0-33.4); MEAN CORPUSCULAR HGB CONC 30.7 g/dL (32.0-36.0); MEAN CORPUSCULAR VOLUME 85 fl (80-97); PLATELET COUNT 252 10^3/uL (150-450); RED BLOOD COUNT 5.72 10^6/uL (4.35-5.55); RED CELL DISTRIBUTION WIDTH 16.2 % (11.5-14.0); WHITE BLOOD COUNT 27.8 10^3/uL (4.0-10.5)
[2020-01-12] MEDS ORDERED: HEPARIN SOD (PORCINE) 1,000 UNIT/ML 10 ML VIAL IV PRN (05:00)
[2020-01-12] MEDS: LINEZOLID 600 MG/300 ML RTUPB IV SCH (05:18)
[2020-01-12] MEDS: PIPERACILLIN SODIUM/TAZOBACTAM 2.25 GM in NORMAL SALINE 50 ML IV SCH (05:18)
[2020-01-12] MEDS: METHYLPREDNISOLONE INJ 40 MG/1 ML SDV IV SCH (05:19)
[2020-01-12] MEDS: DEXTROSE 5%-WATER 1000 ML 1,000 ML with SODIUM BICARBONATE 150 MEQ IV PRN ×2 (07:01)
[2020-01-12 07:25] LABS: ARTERIAL BLOOD BASE EXCESS -16.5 mmol/L; ARTERIAL BLOOD H2CO3 1.88 mmol/L (1.05-1.35); ARTERIAL BLOOD HCO3 15.4 mmol/L (20-24); ARTERIAL BLOOD O2 SATURATION 76.1 % (94-98); ARTERIAL BLOOD PCO2 62.4 mmHg (35-45); ARTERIAL BLOOD PO2 59.7 mmHg (80-100); ARTERIAL BLOOD TOTAL CO2 17.3 mmol/L (23-27)
[2020-01-12 07:31] LABS: ARTERIAL BLOOD FIO2 50%
[2020-01-12 07:32] LABS: ARTERIAL BLOOD PH 7.01 (7.35-7.45)
--- NOTE | 2020-01-12 07:53 | PDOC PROGRESS REPORT ---
Subjective Progress Note for:: 01/12/20 Subjective:: Patient is awake in ICU, on BiPAP. Nurses report no new events overnight. Dialysis is scheduled to start shortly. No obvious bleeding. No urine output. Reason For Visit: ACUTE KIDNEY INJURY,SIRS,BILATERAL LOCULTED PLEURA Physical Exam Vital Signs: Temp Pulse Resp BP Pulse Ox 96.6 F L 78 20 86/53 L 80 L 01/12/20 06:36 01/12/20 02:45 01/12/20 06:36 01/12/20 06:36 01/12/20 05:38 Intake & Output 01/11/20 01/12/20 01/13/20 06:59 06:59 06:59 Intake Total 3766 1905 2 Output Total 35 20 Balance 3731 1885 2 Weight 75.1 kg 81.2 kg General appearance: PRESENT: mild distress, thin Head exam: PRESENT: normocephalic Eye exam: PRESENT: EOMI Respiratory exam: PRESENT: tachypnea, wheezes Cardiovascular exam: PRESENT: other - Heart sounds obscured. Extremities exam: ABSENT: pedal edema Skin exam: PRESENT: normal color Results Laboratory Results: 01/12/20 04:45 01/12/20 04:01 01/11/20 01/11/20 01/11/20 08:47 08:47 09:30 WBC RBC Hgb Hct MCV MCH MCHC RDW Plt Count Carbonic Acid 1.39 H HCO3/H2CO3 Ratio 11:1 ABG pH 7.15 L* ABG pCO2 46.2 H ABG pO2 98.2 ABG HCO3 15.8 L ABG O2 Saturation 95.5 ABG Base Excess -12.9 FiO2 50% Sodium 133.5 L Potassium 5.7 H Chloride 92 L Carbon Dioxide 22 Anion Gap 20 H BUN 98 H Creatinine 4.50 H Est GFR ( Amer) 16 L Glucose 132 H Lactic Acid 6.6 H Calcium 9.3 Total Bilirubin 3.6 H AST 749 H Alkaline Phosphatase 161 H Total Protein 8.7 H Albumin 4.7 01/11/20 01/11/20 01/12/20 12:43 15:55 04:01 WBC RBC Hgb Hct MCV MCH MCHC RDW Plt Count Carbonic Acid 1.40 H HCO3/H2CO3 Ratio 11:1 ABG pH 7.17 L* ABG pCO2 46.6 H ABG pO2 84.4 ABG HCO3 16.4 L ABG O2 Saturation 93.5 L ABG Base Excess -12.1 FiO2 50% Sodium 132.4 L Potassium 5.8 H Chloride 92 L Carbon Dioxide 20 L Anion Gap 20 H BUN 98 H Creatinine 5.14 H Est GFR ( Amer) 14 L Glucose 144 H Lactic Acid 7.2 H Calcium 8.4 Total Bilirubin 3.7 H AST 1625 H Alkaline Phosphatase 127 H Total Protein 7.0 Albumin 3.9 01/12/20 01/12/20 01/12/20 04:01 04:32 04:45 WBC Cancelled 27.8 H RBC Cancelled 5.72 H Hgb Cancelled 14.8 Hct Cancelled 48.3 MCV Cancelled 85 MCH Cancelled 25.9 L MCHC Cancelled 30.7 L RDW Cancelled 16.2 H Plt Count Cancelled 252 Carbonic Acid HCO3/H2CO3 Ratio ABG pH ABG pCO2 ABG pO2 ABG HCO3 ABG O2 Saturation ABG Base Excess FiO2 Sodium Potassium Chloride Carbon Dioxide Anion Gap BUN Creatinine Est GFR ( Amer) Glucose Lactic Acid 7.5 H Calcium Total Bilirubin AST Alkaline Phosphatase Total Protein Albumin 01/12/20 07:15 WBC RBC Hgb Hct MCV MCH MCHC RDW Plt Count Carbonic Acid 1.88 H HCO3/H2CO3 Ratio 8:1 ABG pH 7.01 L* ABG pCO2 62.4 H ABG pO2 59.7 L ABG HCO3 15.4 L ABG O2 Saturation 76.1 L ABG Base Excess -16.5 FiO2 50% Sodium Potassium Chloride Carbon Dioxide Anion Gap BUN Creatinine Est GFR ( Amer) Glucose Lactic Acid Calcium Total Bilirubin AST Alkaline Phosphatase Total Protein Albumin 01/08/20 01/09/20 01/10/20 18:04 11:09 04:50 Creatine Kinase 41 L Troponin I 0.014 NT-Pro-B Natriuret Pep 3000 H 01/11/20 08:47 Creatine Kinase Troponin I 0.128 NT-Pro-B Natriuret Pep Impressions: Chest CT 01/09/20 00:00 IMPRESSION: NO SIGNIFICANT CHANGE. LARGE LOCULATED PLEURAL EFFUSIONS, EMPHYSEMATOUS CHANGES WITH PULMONARY FIBROSIS, AND ADENOPATHY ARE UNCHANGED. Renal Ultrasound 01/10/20 00:00 IMPRESSION: Unremarkable renal sonogram. No evidence of hydronephrosis to suggest obstruction as the cause of the patient's renal dysfunction. Chest X-Ray 01/11/20 00:00 IMPRESSION: STABLE APPEARANCE OF THE CHEST. SUPPORT DEVICES UNCHANGED. Assessment & Plan - Diagnosis (1) Lung cancer metastatic to brain Is this a current diagnosis for this admission?: Yes Plan: This has been stable. No current treatment for several weeks. (2) Loculated pleural effusion Is this a current diagnosis for this admission?: Yes Plan: This is mild to moderate. Plans were for thoracentesis, but this has not been possible due to elevated INR. Not sure if this will significantly help his breathing or not. Consider repeat CT (3) Acute kidney failure Qualifiers: Acute renal failure type: unspecified Qualified Code(s): N17.9 - Acute kidney failure, unspecified Is this a current diagnosis for this admission?: Yes Plan: He has hepatorenal failure of unknown cause. Possible causes include medication induced, infection, and cancer. Consider CT abdomen, but would be more benefici al with contrast and kidneys right now cannot tolerate any contrast. I would continue steroids for now. - Time Time Spent with patient: 25-34 minutes - Plan Summary Plan Summary: I discussed at length with . Patient's wishes were to have "everything done." However, she also understands that he may not survive this admission. She does not want CPR or mechanical ventilation but would like to continue all other types of aggressive treatment. I have changed his code status to DNR. I discussed his care at length with Dr. Friedman.
[2020-01-12] MEDS: BUDESONIDE NEB 0.25 MG/2 ML AMPUL NEB SCH (08:20)
[2020-01-12] MEDS ORDERED: MORPHINE SULFATE 10 MG/ML INJ IV PRN (09:38)
[2020-01-12] MEDS ORDERED: LORAZEPAM INJ 2 MG/1 ML VIAL IV PRN (09:38)
--- NOTE | 2020-01-12 09:43 | PDOC CRITICAL CARE PROG REPORT ---
General Date:: 01/12/20 ICU Day:: 2 Hospital Day:: 5 Resuscitation Status: Do Not Resuscitate Events in the past 12 to 24 Hours:: This 64-year-old male reformed smoker is seen in consultation at the request of Marysol Cardenas NP for recommendations on further evaluation and management of shock and lactic acidosis. At the time of clinical interview, the patient is BiPAP dependent (BiPAP 14/6, FiO2 50%) and is on dopamine infusion for blood pressure support. The patient was admitted on 01/08/2020 [facility] complaints of progressively worsening dyspnea over the past 10 days. He reported exertional dyspnea, orthopnea and a cough productive of clear mucus secretions. He did endorse fever and chills, along with generalized weakness, dizziness and anorexia. COVID-19 test is pending. He was initially admitted as a PUI to the third floor. Request for transfer was submitted when the patient required dopamine infusion for blood pressure support. Most recent ABG: pH 7.15, PCO2 46, PO2 98 on BiPAP. He is being followed by the nephrology service and is anticipating hemodialysis for acute kidney injury. His presenting creatinine was 1.34 and is now 4.50. He is oliguric. 01/10: The patient was on BiPAP and Precedex for sedation overnight. During the course of the evening, the patient became obtunded and demonstrated near agonal respirations. Precedex was discontinued. While preparations were being made for impending intubation, the patient did improve his mental status. Cons equently, he did continue on BiPAP for the remainder of the night. At the time of clinical interview, the patient is on BiPAP. He is mentating. He has been restarted on dopamine for blood pressure support. Discussion with the nighttime ICU staff reveals that the patient's was at the bedside during his acute deterioration. In the interim, she has decided to make patient DNR and I was just informed by Dr. Lynch that the patient has decided to withhold hemodialysis. She is requesting that we now transition to comfort measures only. Reason for ICU Addmission:: Hypotension/shock, lactic acidosis - Medications: Medications reviewed and adjusted accordingly: Yes Physical Exam Vital Signs: Temp Pulse Resp BP Pulse Ox 97.2 F 71 26 H 92/66 L 95 01/12/20 08:33 01/12/20 08:33 01/12/20 08:33 01/12/20 08:33 01/12/20 08:20 Intake & Output 01/11/20 01/12/20 01/13/20 06:59 06:59 06:59 Intake Total 3766 1905 2 Output Total 35 20 100 Balance 3731 1884 - Weight 75.1 kg 81.2 kg Weight/Height Weight 81.2 kg Height 1.85 m General appearance: PRESENT: thin, other - Cachectic. Respiratory distress, on BiPAP Head exam: PRESENT: atraumatic, normocephalic Eye exam: PRESENT: conjunctiva pink, EOMI, PERRLA. ABSENT: scleral icterus Mouth exam: PRESENT: moist, tongue midline Respiratory exam: PRESENT: rales, rhonchi. ABSENT: wheezes Cardiovascular exam: PRESENT: RRR, tachycardia. ABSENT: diastolic murmur, rubs, systolic murmur Pulses: PRESENT: normal dorsalis pedis pul GI/Abdominal exam: PRESENT: normal bowel sounds, soft. ABSENT: distended, guarding, mass, organolmegaly, rebound, tenderness Extremities exam: PRESENT: full ROM, pedal edema. ABSENT: calf tenderness, clu bbing Neurological exam: PRESENT: alert, awake, reflexes normal, CN II-XII grossly intact. ABSENT: motor sensory deficit Psychiatric exam: ABSENT: agitated, anxious Skin exam: PRESENT: dry, intact, warm. ABSENT: cyanosis, rash Laboratory/Radiographs Laboratory Results: 01/12/20 04:45 01/12/20 04:01 01/11/20 01/11/20 01/11/20 08:47 08:47 09:30 WBC RBC Hgb Hct MCV MCH MCHC RDW Plt Count Carbonic Acid 1.39 H HCO3/H2CO3 Ratio 11:1 ABG pH 7.15 L* ABG pCO2 46.2 H ABG pO2 98.2 ABG HCO3 15.8 L ABG O2 Saturation 95.5 ABG Base Excess -12.9 FiO2 50% Sodium 133.5 L Potassium 5.7 H Chloride 92 L Carbon Dioxide 22 Anion Gap 20 H BUN 98 H Creatinine 4.50 H Est GFR ( Amer) 16 L Glucose 132 H Lactic Acid 6.6 H Calcium 9.3 Total Bilirubin 3.6 H AST 749 H Alkaline Phosphatase 161 H Total Protein 8.7 H Albumin 4.7 01/11/20 01/11/20 01/12/20 12:43 15:55 04:01 WBC RBC Hgb Hct MCV MCH MCHC RDW Plt Count Carbonic Acid 1.40 H HCO3/H2CO3 Ratio 11:1 ABG pH 7.17 L* ABG pCO2 46.6 H ABG pO2 84.4 ABG HCO3 16.4 L ABG O2 Saturation 93.5 L ABG Base Excess -12.1 FiO2 50% Sodium 132.4 L Potassium 5.8 H Chloride 92 L Carbon Dioxide 20 L Anion Gap 20 H BUN 98 H Creatinine 5.14 H Est GFR ( Amer) 14 L Glucose 144 H Lactic Acid 7.2 H Calcium 8.4 Total Bilirubin 3.7 H AST 1625 H Alkaline Phosphatase 127 H Total Protein 7.0 Albumin 3.9 01/12/20 01/12/20 01/12/20 04:01 04:32 04:45 WBC Cancelled 27.8 H RBC Cancelled 5.72 H Hgb Cancelled 14.8 Hct Cancelled 48.3 MCV Cancelled 85 MCH Cancelled 25.9 L MCHC Cancelled 30.7 L RDW Cancelled 16.2 H Plt Count Cancelled 252 Carbonic Acid HCO3/H2CO3 Ratio ABG pH ABG pCO2 ABG pO2 ABG HCO3 ABG O2 Saturation ABG Base Excess FiO2 Sodium Potassium Chloride Carbon Dioxide Anion Gap BUN Creatinine Est GFR ( Amer) Glucose Lactic Acid 7.5 H Calcium Total Bilirubin AST Alkaline Phosphatase Total Protein Albumin 01/12/20 07:15 WBC RBC Hgb Hct MCV MCH MCHC RDW Plt Count Carbonic Acid 1.88 H HCO3/H2CO3 Ratio 8:1 ABG pH 7.01 L* ABG pCO2 62.4 H ABG pO2 59.7 L ABG HCO3 15.4 L ABG O2 Saturation 76.1 L ABG Base Excess -16.5 FiO2 50% Sodium Potassium Chloride Carbon Dioxide Anion Gap BUN Creatinine Est GFR ( Amer) Glucose Lactic Acid Calcium Total Bilirubin AST Alkaline Phosphatase Total Protein Albumin 01/08/20 01/09/20 01/10/20 18:04 11:09 04:50 Creatine Kinase 41 L Troponin I 0.014 NT-Pro-B Natriuret Pep 3000 H 01/11/20 08:47 Creatine Kinase Troponin I 0.128 NT-Pro-B Natriuret Pep Impressions: Chest CT 01/09/20 00:00 IMPRESSION: NO SIGNIFICANT CHANGE. LARGE LOCULATED PLEURAL EFFUSIONS, E MPHYSEMATOUS CHANGES WITH PULMONARY FIBROSIS, AND ADENOPATHY ARE UNCHANGED. Renal Ultrasound 01/10/20 00:00 IMPRESSION: Unremarkable renal sonogram. No evidence of hydronephrosis to suggest obstruction as the cause of the patient's renal dysfunction. Chest X-Ray 01/11/20 00:00 IMPRESSION: STABLE APPEARANCE OF THE CHEST. SUPPORT DEVICES UNCHANGED. All labs, radiographs, diagnostic studies and EKGs were personally reviewed: Yes In addition, reports of radiographic and diagnostic studies were read: Yes Assessment and Plan - Diagnosis (1) Acute hypoxemic respiratory failure Is this a current diagnosis for this admission?: Yes (2) Shock Is this a current diagnosis for this admission?: Yes (3) Lactic acidosis Is this a current diagnosis for this admission?: Yes (4) Acute kidney failure Qualifiers: Acute renal failure type: unspecified Qualified Code(s): N17.9 - Acute kidney failure, unspecified Is this a current diagnosis for this admission?: Yes (5) Acute decompensated heart failure Is this a current diagnosis for this admission?: Yes (6) Hyperkalemia Is this a current diagnosis for this admission?: Yes (7) Increased anion gap metabolic acidosis Is this a current diagnosis for this admission?: Yes (8) Loculated pleural effusion Is this a current diagnosis for this admission?: Yes (9) Lung cancer metastatic to brain Is this a current diagnosis for this admission?: Yes (10) Paroxysmal atrial fibrillation Is this a current diagnosis for this admission?: Yes (11) Transaminitis Is this a current diagnosis for this admission?: Yes (12) Lower extremity edema Is this a current diagnosis for this admission?: Yes (13) Emphysema lung Qualifiers: Emphysema type: unspecified Qualified Code(s): J43.9 - Emphysema, unspecified Is this a current diagnosis for this admission?: Yes (14) Bilateral pleural effusion Is this a current diagnosis for this admission?: Yes (15) Pulmonary fibrosis, unspecified Is this a current diagnosis for this admission?: Yes Plan Summary: In light of the change in goals of care, we will discontinue any attempt at definitive/curative management. Comfort measures only, as instructed by the patient's . Critical Time Critical Time (minutes): 45 Level of Care: ICU -: 1. The care of a critical patient is a dynamic process. This note is a event sales representative synopsis but static in nature. The timeframe for treatments given in order is not necessarily the actual time these treatments may have been done. 2. This patient requires critical care secondary to ongoing requirements for therapy not offered or safe outside the critical care environment. Transfer to a lower level of care will result in altered life or limb morbidity and mortality. 3. Multidisciplinary rounds completed. 4. ABCDE bundle addressed.
[2020-01-12] MEDS: PANTOPRAZOLE SODIUM 40 MG VIAL IV SCH (09:45)
--- NOTE | 2020-01-12 11:26 | PDOC PROGRESS REPORT ---
Subjective Progress Note for:: 01/12/20 Reason For Visit: Patient seen today in the ICU. He is on BiPAP and is struggling to breathe and is agonal. He looks extremely critical. Vital signs signs shows that his blood pressure is dropping. Dialysis will be difficult to be initiated in this patient at this time because he is in extremis. Therefore I discussed the patient with his who was in the waiting room. She wanted to see the patient herself and after she had seen him agreed with my recommendations that patient be made comfortable and she would not want any further treatment including hemodialysis. She wanted some sort of sedation/pain management so that he would not be restless. She understands that is that his is very imminent and is happy with all the treatment that her received here. Discussed the patient's care care with my hemodialysis nurse Hailey as well as with the treating speech therapist early intervention Dr. Friedman. Physical Exam Vital Signs: Temp Pulse Resp BP Pulse Ox 97.2 F 71 26 H 92/66 L 95 01/12/20 08:33 01/12/20 08:33 01/12/20 08:33 01/12/20 08:33 01/12/20 08:20 Intake & Output 01/11/20 01/12/20 01/13/20 06:59 06:59 06:59 Intake Total 3766 1905 1428 Output Total 35 20 100 Balance 3731 1885 1328 Weight 75.1 kg 81.2 kg Exam: Patient is in agonal breathing in spite of being on BiPAP. Looks extremely critical. Respiratory exam: PRESENT: clear to auscultation stefany, decreased breath sounds. ABSENT: crackles Cardiovascular exam: PRESENT: +S1, +S2 GI/Abdominal exam: PRESENT: normal bowel sounds, soft. ABSENT: organomegaly, tenderness Results Laboratory Results: 01/12/20 04:45 01/12/20 04:01 01/11/20 01/11/20 01/12/20 12:43 15:55 04:01 WBC RBC Hgb Hct MCV MCH MCHC RDW Plt Count Carbonic Acid 1.40 H HCO3/H2CO3 Ratio 11:1 ABG pH 7.17 L* ABG pCO2 46.6 H ABG pO2 84.4 ABG HCO3 16.4 L ABG O2 Saturation 93.5 L ABG Base Excess -12.1 FiO2 50% Sodium 132.4 L Potassium 5.8 H Chloride 92 L Carbon Dioxide 20 L Anion Gap 20 H BUN 98 H Creatinine 5.14 H Est GFR ( Amer) 14 L Glucose 144 H Lactic Acid 7.2 H Calcium 8.4 Total Bilirubin 3.7 H AST 1625 H Alkaline Phosphatase 127 H Total Protein 7.0 Albumin 3.9 01/12/20 01/12/20 01/12/20 04:01 04:32 04:45 WBC Cancelled 27.8 H RBC Cancelled 5.72 H Hgb Cancelled 14.8 Hct Cancelled 48.3 MCV Cancelled 85 MCH Cancelled 25.9 L MCHC Cancelled 30.7 L RDW Cancelled 16.2 H Plt Count Cancelled 252 Carbonic Acid HCO3/H2CO3 Ratio ABG pH ABG pCO2 ABG pO2 ABG HCO3 ABG O2 Saturation ABG Base Excess FiO2 Sodium Potassium Chloride Carbon Dioxide Anion Gap BUN Creatinine Est GFR ( Amer) Glucose Lactic Acid 7.5 H Calcium Total Bilirubin AST Alkaline Phosphatase Total Protein Albumin 01/12/20 07:15 WBC RBC Hgb Hct MCV MCH MCHC RDW Plt Count Carbonic Acid 1.88 H HCO3/H2CO3 Ratio 8:1 ABG pH 7.01 L* ABG pCO2 62.4 H ABG pO2 59.7 L ABG HCO3 15.4 L ABG O2 Saturation 76.1 L ABG Base Excess -16.5 FiO2 50% Sodium Potassium Chloride Carbon Dioxide Anion Gap BUN Creatinine Est GFR ( Amer) Glucose Lactic Acid Calcium Total Bilirubin AST Alkaline Phosphatase Total Protein Albumin 01/08/20 01/09/20 01/10/20 18:04 11:09 04:50 Creatine Kinase 41 L Troponin I 0.014 NT-Pro-B Natriuret Pep 3000 H 01/11/20 08:47 Creatine Kinase Troponin I 0.128 NT-Pro-B Natriuret Pep Impressions: Chest CT 01/09/20 00:00 IMPRESSION: NO SIGNIFICANT CHANGE. LARGE LOCULATED PLEURAL EFFUSIONS, EMPHYSEMATOUS CHANGES WITH PULMONARY FIBROSIS, AND ADENOPATHY ARE UNCHANGED. Renal Ultrasound 01/10/20 00:00 IMPRESSION: Unremarkable renal sonogram. No evidence of hydronephrosis to suggest obstruction as the cause of the patient's renal dysfunction. Chest X-Ray 01/11/20 00:00 IMPRESSION: STABLE APPEARANCE OF THE CHEST. SUPPORT DEVICES UNCHANGED. Assessment & Plan - Diagnosis (1) Septic shock Plan: Patient extremely critical with severe hypotension. At this point after discussions with his there she has opted to go with comfort care and withdrawal of all treatments. I agree with that. (2) Acute kidney failure Qualifiers: Acute renal failure type: unspecified Qualified Code(s): N17.9 - Acute kidney failure, unspecified Is this a current diagnosis for this admission?: Yes Plan: Anuric. At this point given the criticality of his state, patient's has declined to initiate hemodialysis and I concur with that. I am going to sign off this patient. is very imminent. (3) Hyperkalemia Is this a current diagnosis for this admission?: Yes (4) Increased anion gap metabolic acidosis Is this a current diagnosis for this admission?: Yes (5) Loculated pleural effusion Is this a current diagnosis for this admission?: Yes (6) Lung cancer metastatic to brain Is this a current diagnosis for this admission?: Yes Plan: Status quo. (7) Paroxysmal atrial fibrillation Is this a current diagnosis for this admission?: Yes
[2020-01-12 13:48] VITALS: BP 78/53
--- NOTE | 2020-01-12 16:31 | EKG REPORT ---
SEVERITY:- ABNORMAL ECG - SINUS RHYTHM FIRST DEGREE AV BLOCK ANTERIOR INFARCT, AGE INDETERMINATE BORDERLINE T ABNORMALITIES, INFERIOR LEADS : Confirmed by: Wojciech Long MD 12-Jan-2020 16:30:35
--- NOTE | 2020-01-29 16:58 | Death Summary ---
Summary Date : 01/12/20 Time of :: 10:49 Autopsy: No Resuscitation Status: Full Code - Final Diagnosis (1) Acute hypoxemic respiratory failure Is this a current diagnosis for this admission?: Yes (2) Shock Is this a current diagnosis for this admission?: Yes (3) Lactic acidosis Is this a current diagnosis for this admission?: Yes (4) Acute kidney failure Is this a current diagnosis for this admission?: Yes (5) Acute decompensated heart failure Is this a current diagnosis for this admission?: Yes (6) Hyperkalemia Is this a current diagnosis for this admission?: Yes (7) Increased anion gap metabolic acidosis Is this a current diagnosis for this admission?: Yes (8) Loculated pleural effusion Is this a current diagnosis for this admission?: Yes (9) Lung cancer metastatic to brain Is this a current diagnosis for this admission?: Yes (10) Paroxysmal atrial fibrillation Is this a current diagnosis for this admission?: Yes (11) Transaminitis Is this a current diagnosis for this admission?: Yes (12) Lower extremity edema Is this a current diagnosis for this admission?: Yes (13) Emphysema lung Is this a current diagnosis for this admission?: Yes (14) Bilateral pleural effusion Is this a current diagnosis for this admission?: Yes (15) Pulmonary fibrosis, unspecified Is this a current diagnosis for this admission?: Yes Hospital Course:: This 64-year-old male reformed smoker was originally admitted on 01/08/2020 after presenting to the emergency department with complaints of progressively worsening dyspnea over the 10 days prior to presentation. He was negative for SARS-2-CoV infection. He was admitted as a PUI to the third floor; however, on day 4 of hospitalization, a request to transfer to ICU was submitted when the patient required dopamine infusion for blood pressure support and need for urgent dialysis. He was assessed to have acute oliguric renal failure with creatinine increasing from 1.34 to 4.5. He also developed lactic acidosis. Patient was BiPAP dependent at the time of transfer. While the patient did appear to improve hemodynamically, he did seem agitated and was started on Precedex infusion with modest improvement. The patient's was able to visit with the patient and was at the bedside for an extensive period of the night, during which time the patient was BiPAP dependent. During this time, the patient had an episode where he became obtunded and almost experienced cardiopulmonary arrest. He was able to avoid endotracheal intubation with continuation of Precedex. Earlier in the morning of 01/12/2020, the and patient' s were visited by Dr. Hamilton and Dr. Lynch, who conveyed the critical nature of the patient's illness. The patient's made a decision to change his CODE STATUS from full code to DO NOT RESUSCITATE and requested that COMFORT MEASURES only to be provided. I was called to the patient's bedside for asystole on the monitor. No spontaneous movements were present. No response to verbal or tactile stimuli. Pupils fixed and dilated, midline. No breath sounds. No carotid pulses. No heart sounds on auscultation over the entire precordium. Patient was pronounced at 01/12/2020, 1049. Patient's was at the bedside at the time of . Case was reviewed with the certified medical coding specialist; case deferred. No autopsy requested.
== END 2020-01-12 10:49 | disposition left against medical advice (07) | DRG 871 ==
LOC: ER 16:32 → EH 01-09 02:05 → 4S 01-09 05:00 → 3N 01-09 15:05 → ICU 01-11 12:18
PROVIDERS: ADMIT Internal Medicine Critical Care Medicine; ATTEND Internal Medicine Critical Care Medicine
PROC: 5A09457 Assistance with Respiratory Ventilation, 24-96 Consecutive Hours, Continuous Positive Airway Pressure (ICD-10-PCS; 2020-01-09)
PROC: 06HN33Z Insertion of Infusion Device into Left Femoral Vein, Percutaneous Approach (ICD-10-PCS; principal; 2020-01-11)
PROC: B54CZZA Ultrasonography of Left Lower Extremity Veins, Guidance (ICD-10-PCS; 2020-01-11)
DX: A41.9 Sepsis, unspecified organism (principal); R65.21 Severe sepsis with septic shock; J18.9 Pneumonia, unspecified organism; J96.01 Acute respiratory failure with hypoxia; N17.9 Acute kidney failure, unspecified; C34.90 Malignant neoplasm of unspecified part of unspecified bronchus or lung; C79.31 Secondary malignant neoplasm of brain; E87.2 Acidosis; J91.8 Pleural effusion in other conditions classified elsewhere; R65.10 Systemic inflammatory response syndrome (SIRS) of non-infectious origin without acute organ dysfunction; I48.0 Paroxysmal atrial fibrillation; E87.5 Hyperkalemia; D72.829 Elevated white blood cell count, unspecified; Z87.891 Personal history of nicotine dependence; Z82.49 Family history of ischemic heart disease and other diseases of the circulatory system; Z79.01 Long term (current) use of anticoagulants; Z20.828 Contact with and (suspected) exposure to other viral communicable diseases; Z92.3 Personal history of irradiation; Z83.3 Family history of diabetes mellitus; Z66 Do not resuscitate; Z51.5 Encounter for palliative care; J43.9 Emphysema, unspecified; J84.10 Pulmonary fibrosis, unspecified; R74.0 Nonspecific elevation of levels of transaminase and lactic acid dehydrogenase [LDH]; Z85.820 Personal history of malignant melanoma of skin; Z79.899 Other long term (current) drug therapy; E86.0 Dehydration
CPT/HCPCS: 36415; 36430; 36600; 71045; 71046; 71250; 76770; 80048; 80053; 80061; 81001; 82550; 82803; 82962; 83605; 83735; 83880; 84439; 84443; 84481; 84484; 85025; 85027; 85379; 85384; 85610; 85652; 85730; 86140; 86850; 86900; 86901; 87040; 87635; 93005; 93010; 94660; 99285; 99291; C9113; C9803; J0610; J0692; J1100; J1265; J1815; J1940; J2020; J2060; J2270; J2405; J2543; J2550; J2920; J3010; J3370; J3430; J3475; J3490; J7030; J7042; J7060; P9017